=== PATIENT | female | born 1960 | race Caucasian/White ===

== ENCOUNTER 2018-03-14 14:35 | Emergency (ER) | payer MEDICARE, MEDICAID, SELFPAY ==
[2018-03-14 14:35] VITALS: BP 144/83; PULSE 77; RESP 18; TEMP 36.6; O2SAT 99; BMI 19.1
--- NOTE | 2018-03-14 14:49 | CT_ITS ---
STUDY: CT ABDOMEN AND PELVIS WITH CONTRAST REASON FOR EXAM: Female, 57 years old. Lower abdominal pain RADIATION DOSAGE (If Supplied By Facility): CTDIvol = ( 14.38 ) mGy, DLP = ( 441.70 ) mGycm TECHNIQUE: Transaxial images were obtained from the dome of the diaphragm to the symphysis pubis without oral contrast. Intravenous contrast was administered. Sagittal and coronal images were reconstructed. Individualized dose optimization techniques were used for this CT. COMPARISON: None. FINDINGS: The visualized lung bases are clear. The visualized portions of the heart and pericardium are within normal limits. There are no calcified gallstones present. The liver is within normal limits. There are no suspicious hepatic lesions. The spleen is normal in size. The pancreas is within normal limits. There is an indeterminate left adrenal nodule. The right adrenal gland is within normal limits. There are no renal or ureteral stones. There is no hydronephrosis. There are simple cysts in the right kidney. There are no left renal lesions. Normal visualized stomach. There is no bowel obstruction. There are mild inflammatory changes adjacent to a diverticulum in the sigmoid colon (for example image 91 series 2). This is consistent with mild acute sigmoid diverticulitis. The appendix is not visualized, but there are no findings to suggest acute appendicitis. The aorta is normal in caliber. There is no abdominal or pelvic free air, free fluid, fluid collection or lymphadenopathy. There are no destructive osseous lesions. CT/Abdomen/Pelvis W IV Cont ONLY IMPRESSION: Mild acute sigmoid diverticulitis. No evidence of perforation or abscess formation. Indeterminate left adrenal nodule. Electronically Signed: Chas Celestin, at 16:04 EDT Tel , Service support ,
--- NOTE | 2018-03-14 14:51 | ED.DCSUM_ITS ---
- ER Visit Summary Date of Service: 03/14/18 Chief Complaint: Abdominal pain History of Present Illness: The patient is a 57 F presents to the emergency department with abdominal pain. Patient's been having symptoms for the past 3 days. She describes tightness in her upper abdomen. She has been nauseated without vomiting. She has been taking Zofran with little relief. The patient states that she will get flares of pain like this from time to time. She states she went to urgent care and they sent her over here for further evaluation. She has had prior hysterectomy, but no other abdominal surgery. She is having loose watery diarrhea. She denies any fevers or chills. She denies any recent travel. Physical Examination: Vital signs reviewed General: Well-nourished, well-developed Head: Normocephalic, atraumatic Eyes: Pupils equal and reactive, extraocular muscles intact Neck, supple, no lymphadenopathy Heart: Regular rate and rhythm Respiratory: No distress, clear bilaterally Abdomen: Soft, mildly tender in the left lower quadrant, nondistended, no peritoneal signs Back: Nontender Extremities: Nontender, no edema, no cords Skin: Normal color no rash Neuro: Alert and oriented, no focal or lateralizing deficits Test Results: [] Emergency Department Course and Treatment: Patient declined any narcotic analgesic. IV was established. She was given fluids, Zofran, Toradol. This did improve her pain area and screening labs were obtained and were unremarkable. There was some trace blood in the urine. Patient underwent CT of the abdomen and pelvis. This does show mild uncomplicated diverticulitis. I discussed options with the patient. At this time, she wants to attempt outpatient therapy and I feel this is reasonable. Her nausea is controlled. Her abdomen is soft and nontender. She is started on Cipro and Flagyl here and will be continued on these as an outpatient. I did group home counselor her that if her symptoms worsen, she has a fever, or is unable to tolerate her medication she should return. Patient is comfortable with this plan of care. Treatment Plan: [] Disposition: Discharge Impression: 1. Diverticulitis left lower quadrant This note was generated with [employer] dictation software. It may contain incorrect words, spelling, and punctuation that were not noted in review of the chart prior to signing ED Disposition - Plan for ED Patient: Chief Complaint: Abd Pain Instructions: ED Diverticulitis Prescriptions: Ondansetron [Zofran Odt] 4 mg PO Q8H PRN PRN #10 tab PRN Reason: Nausea Metronidazole [Flagyl] 500 mg PO Q8H #21 tab Ciprofloxacin [Cipro] 500 mg PO BID #14 tab Referrals: Donavon Storey MD [Primary Care Provider] -
[2018-03-14] MEDS: Ondansetron 4 MG/2 ML Vial IV (14:59)
[2018-03-14] MEDS: 0.9% Normal Saline 1,000 ML 1000 ML IV (14:59)
[2018-03-14] MEDS: Ketorolac 30 MG/ML Syringe IV (14:59)
[2018-03-14 15:13] LABS: Absolute Lymphocyte Count 1.76 X10^3/ul (0.83-4.51); Absolute Neutrophil Count 5.3 X10^3/uL (2.0-7.7); Basophil# 0.04 X10^3/uL; Basophil% 0.5 % (0-1); Eosinophil# 0.19 X10^3/uL; Eosinophils% 2.4 % (0-5); Hematocrit 35.6 % (37-47); Hemoglobin 11.8 g/dl (12.0-15.0); Lymphocyte # 1.76 X10^3/ul (4.0); Lymphocyte % 22.3 % (19-41); Mean Corp Hgb Conc 33.1 g/gl (32-36); Mean Corpuscular Hgb 29.6 pg (27.0-32.0); Mean Corpuscular Volume 89.4 fL (81-99); Mean Platelet Vol. 10.6 fl (6.2-12.0); Monocyte# 0.54 X10^3/uL; Monocyte% 6.9 % (0-10); Neutrophil # 5.33 X10^3/uL (2.7-7.7); Neutrophil % 67.6 % (47-70); POSITIVE COUNT NO; POSITIVE DIFFERENTIAL NO; POSITIVE MORPHOLOGY NO; Platelet Count 277 K/mm3 (150-450); RBC Distribution Width SD 45.3 fl (35.1-43.9); Red Blood Count 3.98 M/mm3 (4.2-5.4); White Blood Count 7.9 K/mm3 (4.4-11.0)
[2018-03-14 15:27] LABS: ALB/GLOB Ratio 0.9 RATIO (0.9-2.4); AST(SGOT) 12 U/L (15-37); Alanine Aminotransfer ALT/SGPT 13 U/L (13-56); Albumin, Serum 3.7 g/dL (3.2-5.0); Alkaline Phosphatase 101 U/L (45-117); Anion Gap 7 (5-15); BUN 11 mg/dL (7-18); BUN/Creat Ratio 19.1 RATIO (10-20); Calcium,Total 9.2 mg/dL (8.5-10.1); Chloride 106 mmol/L (98-107); Creatinine, Serum 0.58 mg/dL (0.55-1.02); EST Glomerular Filtration Rate 114 mL/min (>60); Est Glom Filt Rate - Afr Amer 138 mL/min (>60); Estimated Creatinine Clearance 91.17 ml/min; Globulin 4.1 g/dL (2.2-4.2); Glucose 92 mg/dL (74-106); Lipase 102 U/L (73-393); Potassium 3.6 mmol/L (3.5-5.1); Protein, Total 7.8 g/dL (6.4-8.2); Sodium Level 142 mmol/L (136-145)
[2018-03-14 15:33] LABS: Bacteria 0 SEEN /hpf (None Seen); Mucous, Urine 0 SEEN /hpf (<or=2+)
[2018-03-14 15:41] LABS: Color, Urine Yellow (Yellow); Glucose, Dipstick Normal (Normal); Ketone-Dipstick Negative (Negative); Leukocyte Esterase-Dipstick Negative /ul (Negative); Nitrite-Dipstick Negative (Negative); Occult Blood-Urine 50 /ul (Negative); Protein-Dipstick Negative (Negative); Urine Bilirubin Dipstick Negative (Negative); Urine Clarity Clear (Clear); Urine Urobilinogen Normal (Normal)
[2018-03-14 15:48] LABS: Red Blood Cells-Urine 5-10 SEEN /hpf (0-5); Squamous Epithelial Cells - UA 0-5 SEEN /hpf (5-10); White Blood Cells 0-5 SEEN /hpf (0-5)
[2018-03-14] MEDS: Ciprofloxacin 500 MG Tablet PO (16:32)
[2018-03-14] MEDS: metroNIDAZOLE 500 MG Tablet PO (16:32)
[2018-03-14 16:40] VITALS: BP 142/85; PULSE 73; RESP 15; O2SAT 100
== END 2018-03-14 16:41 | disposition home or self-care (01) ==
PROVIDERS: Emergency Provider Emergency Medicine; Family Provider Family Medicine; PCP Family Medicine
DX: K57.92 Diverticulitis of intestine, part unspecified, without perforation or abscess without bleeding (principal); R31.9 Hematuria, unspecified; K21.9 Gastro-esophageal reflux disease without esophagitis; Z79.899 Other long term (current) drug therapy; Z90.710 Acquired absence of both cervix and uterus
CPT/HCPCS: 74177; 80053; 81001; 83690; 85025; 96361; 96374; 96375; 99283; J7030; Q9967; J2405

== ENCOUNTER 2020-05-24 16:46 | Emergency (ER) | payer MEDICARE, MEDICAID, SELFPAY ==
[2020-05-24 16:47] VITALS: BP 131/105; PULSE 114; RESP 15; TEMP 37; O2SAT 98; BMI 17.2
--- NOTE | 2020-05-24 16:51 | EKG12_ITS ---
Test Reason : SOB Blood Pressure : / mmHG Vent. Rate : 118 BPM Atrial Rate : 119 BPM P-R Int : 126 ms QRS Dur : 090 ms QT Int : 318 ms P-R-T Axes : 080 070 068 degrees QTc Int : 445 ms Sinus tachycardia Biatrial enlargement Abnormal ECG Confirmed by ANAND SUAZO, KANE ([id number]), food expeditor ROSALIA MYERS ([id number]) on 05/30/2020 1:22:36 PM Referred By: LADI Confirmed By:KANE MICHEL MD
--- NOTE | 2020-05-24 16:54 | NURSING ---
NO OLD EKGS
--- NOTE | 2020-05-24 17:25 | RAD_ITS ---
STUDY: X-RAY CHEST REASON FOR EXAM: Female, 60 years old. CHEST PAIN TECHNIQUE: Single AP portable view of the chest. COMPARISON: None. FINDINGS: There is hyperinflation of the lungs consistent with chronic obstructive lung disease (COPD). No consolidation or pleural effusion. Some minor scattered interstitial opacities are present. There is no demonstrated pleural abnormality. A tiny calcified nodule is present in the left lower lobe. Normal size heart. Normal mediastinum and nik. Normal visualized pulmonary arteries. There is atherosclerotic calcification of the aortic arch with tortuosity. Unremarkable visualized osseous structures. RAD/Chest 1 View (Portable) IMPRESSION: COPD Electronically Signed: Harjeet Flores MD at 17:42 EDT , Service support ,
[2020-05-24 17:33] LABS: Absolute Lymphocyte Count 1.31 X10^3/uL (0.83-4.51); Absolute Neutrophil Count 1.9 X10^3/uL (2.0-7.7); Basophil# 0.01 X10^3/uL; Basophil% 0.3 % (0-1); Eosinophil# 0.03 X10^3/uL; Eosinophils% 0.8 % (0-5); Hematocrit 50.3 % (37-47); Hemoglobin 17.5 g/dL (12.0-15.0); Lymphocyte # 1.31 X10^3/ul (4.0); Lymphocyte % 35.7 % (19-41); Mean Corp Hgb Conc 34.8 g/dL (32-36); Mean Corpuscular Hgb 31.4 pg (27.0-32.0); Mean Corpuscular Volume 90.1 fL (81-99); Mean Platelet Vol. 10.3 fl (6.2-12.0); Monocyte# 0.43 X10^3/uL; Monocyte% 11.7 % (0-10); NRBC Flagged by Analyzer 0 % (0-5); Neutrophil # 1.88 X10^3/uL (2.7-7.7); Neutrophil % 51.2 % (47-70); Platelet Count 189 K/mm3 (150-450); RBC Distribution Width CV 12.5 % (11.6-14.6); RBC Distribution Width SD 40.5 fl (35.1-43.9); Red Blood Count 5.58 M/mm3 (4.2-5.4); White Blood Count 3.7 K/mm3 (4.4-11.0)
[2020-05-24] MEDS: 0.9% Normal Saline 1,000 ML 150 ML IV (17:58)
[2020-05-24 18:00] LABS: Anion Gap 1 (5-15); BUN 14 mg/dL (7-18); BUN/Creat Ratio 15.2 RATIO (10-20); Calcium,Total 9.7 mg/dL (8.5-10.1); Chloride 107 mmol/L (98-107); Creatinine, Serum 0.92 mg/dL (0.55-1.02); EST Glomerular Filtration Rate 66 mL/min (>60); Est Glom Filt Rate - Afr Amer 79 mL/min (>60); Estimated Creatinine Clearance 49.95 ml/min; Glucose 77 mg/dL (74-106); Potassium 4.6 mmol/L (3.5-5.1); Sodium Level 138 mmol/L (136-145)
[2020-05-24 18:26] LABS: D-Dimer Quantitative (DVT/PE) 0.93 FEU/ug/m (0.27-0.49)
[2020-05-24 18:37] LABS: AST(SGOT) 15 U/L (15-37); Alanine Aminotransfer ALT/SGPT 20 U/L (13-56); Albumin, Serum 4.9 g/dL (3.2-5.0); Alkaline Phosphatase 92 U/L (45-117); Bilirubin, Direct 0.32 mg/dL (0.00-0.30); Globulin 3.9 g/dL (2.2-4.2); Protein, Total 8.8 g/dL (6.4-8.2); Thyroid Stim Hormone (TSH) 1.63 uIU/mL (0.358-3.74)
--- NOTE | 2020-05-24 18:39 | CT_ITS ---
STUDY: CTA NECK WITH CONTRAST REASON FOR EXAM: Female, 60 years old. SOB, dizziness, neck pain since Friday, fatigue, heart racing. Neck vessels ''''bulging out'' per patient RADIATION DOSAGE (If Supplied By Facility): CTDIvol = ( 12.90 ) mGy, DLP = ( 951.13 ) mGycm TECHNIQUE: CT angiography with multi-detector data acquisition was performed from the aortic arch to the skull base following intravenous administration of IV 75mL Isovue-370. MIP images were reconstructed from the axial data set. Post-processing of the angiographic images was performed, with multiplanar reformation and 3D reconstruction. Individualized dose optimization techniques were used for this CT. COMPARISON: CTA of the neck dated May 24, 2020. FINDINGS: AORTIC ARCH: There is atherosclerotic calcific plaque formation of the aortic arch and great vessels arising from the aortic arch, without a hemodynamically significant stenosis. There is a normal origin of the brachiocephalic, left common carotid, and left subclavian arteries. Normal origins of the brachiocephalic, left common carotid, and left subclavian arteries. RIGHT CAROTID ARTERIES: Normal right common carotid artery (CCA). Normal right common carotid bulb. Normal origin of the right internal carotid (ICA) artery without a hemodynamically significant stenosis. Small eccentric focus of atherosclerotic calcification present in the posterior aspect of the proximal ICA without luminal stenosis. Normal visualized cervical portion of the right internal carotid artery. Normal origin of the right external carotid artery (ECA). LEFT CAROTID ARTERIES: Normal left common carotid artery (CCA). Minor eccentric calcified atherosclerotic plaque is present without luminal stenosis. Minor eccentric calcified atherosclerotic plaque is present without luminal stenosis. Normal visualized cervical portion of the left internal carotid artery. Normal origin of the left external carotid artery (ECA). VERTEBRAL ARTERIES: Normal bilateral vertebral arteries. Degenerative changes are present in the cervical spine. Cystic emphysematous changes are present in the upper lobes. CT/CTA Neck W/WO Contrast IMPRESSION: 1. No hemodynamically significant stenosis of the carotid arteries. 2. Minor eccentric calcified atherosclerotic plaque is present in the left carotid bulb and proximal ICA without luminal stenosis. Electronically Signed: Harjeet Flores MD at 19:51 EDT , Service support ,
--- NOTE | 2020-05-24 18:40 | CT_ITS ---
STUDY: CTA CHEST REASON FOR EXAM: Female, 60 years old. SOB, dizziness, neck pain since Friday, fatigue, heart racing. Neck vessels ''''bulging out'' per patient RADIATION DOSAGE (If Supplied By Facility): CTDIvol = ( 12.90 ) mGy, DLP = ( 951.13 ) mGycm TECHNIQUE: The examination was performed with the intravenous administration of IV 75mL Isovue-370. Post-processing of the angiographic images was performed, with multiplanar reformation and 3D reconstruction. Individualized dose optimization techniques were used for this CT. COMPARISON: Chest x-ray dated May 24, 2020. CT of abdomen and pelvis dated March 14, 2018. FINDINGS: Normal enhancement of the main pulmonary artery and right and left pulmonary arteries. Normal enhancement of the bilateral peripheral pulmonary arteries. There is no demonstrated pulmonary embolism. There is atherosclerotic calcification of the aortic arch with tortuosity. There is no demonstrated aortic dissection. Normal heart size and pericardium. Normal mediastinum. Normal hilar regions. Normal visualized trachea and bronchi. Lungs are hyperinflated compatible with COPD. Diffuse cystic emphysematous changes are present. No consolidation or pulmonary edema or pleural effusion. A 3.8 mm semisolid nodule is present in the central aspect of the right upper lobe see image #196/265 series 2. No additional nodules are present. Normal chest wall structures. There are degenerative changes of thoracic spine. No demonstrated acute or significant process of the visualized upper abdomen. 2.56 cm hypodense nodule of the left adrenal gland has benign features of a left adrenal adenoma and has been present since the March 14, [address]/CTA Chest W/WO Contrast IMPRESSION: 1. No demonstrated pulmonary embolism or arterial dissection. 2. Lungs are hyperinflated compatible with COPD. Diffuse cystic emphysematous changes are present. 3. No consolidation or pulmonary edema or pleural effusion. 4. A 3.8 mm semisolid nodule is present in the central aspect of the right upper lobe see image #196/265 series 2. No additional nodules are present 5. Follow Fleischner''s Society guidelines for pulmonary nodules Electronically Signed: Harjeet Flores MD at 19:46 EDT , Service support ,
[2020-05-24 19:25] VITALS: BP 119/78; PULSE 100; RESP 16; O2SAT 98
--- NOTE | 2020-05-24 20:03 | ED.VIS.GEN ---
History of Present Illness Chief Complaint: Shortness of Breath Informant: Patient Onset: Days - 3 days Context: Gradual Onset Current Severity: Mild Maximum Severity: Moderate Narrative: Patient presents with 3-day history of intermittent shortness of breath, dizziness, chest pain and palpitations. She states she has a sensation of having a low-grade fever. She states occasionally she will feel like her heart is racing. Symptoms seem to be improving when she sits to rest and worse with exertion. She states the veins in her neck are hard. - Past Medical History (1) Borderline diabetes Status: Chronic (2) Hepatitis C Status: Chronic (3) Hemochromatosis Status: Chronic Past Medical History - Allergies and Home Meds Allergies/Adverse Reactions: Allergies codeine Allergy (Verified 05/24/20 16:46) Hives fentanyl Adverse Reaction (Verified 05/24/20 16:46) Nausea Primary Care Physician: Giovanna Hernandez PA [Primary Care Provider] - 1 Week if not improving Surgical History: hysterectomy Lives: Alone Smoking Status: Current every day smoker Review of Systems General: Denies: Chills, Fever Eyes: Denies: Visual changes - bilaterally ENT: Denies: Bilateral ear pain Cardiovascular: Reports: Chest pain, Palpitations, Heart racing Respiratory: Reports: Dyspnea. Denies: Cough Gastrointestinal: Denies: Abdominal pain, Vomiting, Diarrhea Musculoskeletal: Denies: Swelling, Extremity Pain Neurological: Denies: Headache Hematologic: Denies: Easy bruising, Easy bleeding Allergy: Denies: Uticaria Physical Exam Vital Signs/Narrative: Vital Signs Temp Pulse Resp BP Pulse Ox 05/24/20 19:25 100 16 119/78 98 05/24/20 16:47 98.6 F 114 H 15 131/105 H 98 Inital Vital Signs reviewed: Yes General: Well nourished, Well developed Head: Normocephalic ENT: Moist mucous membranes, - - No significant JVD noted. Neck: Supple Cardiovascular: Regular rate, Regular rhythm Respiratory: No distress, CTA bilaterally Abdomen: Soft, Nontender, Normal bowel sounds Extremities: Nontender, No edema Skin: Normal color Neurological: Alert, Oriented x3 Psychological: Normal affect Diagnostic/Tx/Re-eval Impressions Chest X-Ray 05/24/20 17:25 IMPRESSION: COPD Electronically Signed: Harjeet Flores MD at 17:42 EDT , Service support , Neck CTA 05/24/20 18:39 IMPRESSION: 1. No hemodynamically significant stenosis of the carotid arteries. 2. Minor eccentric calcified atherosclerotic plaque is present in the left carotid bulb and proximal ICA without luminal stenosis. Electronically Signed: Harjeet Flores MD at 19:51 EDT , Service support , Chest CTA 05/24/20 18:40 IMPRESSION: 1. No demonstrated pulmonary embolism or arterial dissection. 2. Lungs are hyperinflated compatible with COPD. Diffuse cystic emphysematous changes are present. 3. No consolidation or pulmonary edema or pleural effusion. 4. A 3.8 mm semisolid nodule is present in the central aspect of the right upper lobe see image #196/265 series 2. No additional nodules are present 5. Follow Fleischner''s Society guidelines for pulmonary nodules Electronically Signed: Harjeet Flores MD at 19:46 EDT , Service support , 05/24/20 17:25 Chest 1 View (Portable) [RAD] Stat 05/24/20 18:39 CTA Neck W/WO Contrast [CT] Stat 05/24/20 18:40 CTA Chest W/WO Contrast [CT] Stat Laboratory Results 05/24/20 05/24/20 05/24/20 17:05 17:20 17:20 WBC 3.7 L RBC 5.58 H Hgb 17.5 H Hct 50.3 H MCV 90.1 MCH 31.4 MCHC 34.8 RDW Std Deviation 40.5 RDW Coeff of Jamee 12.5 Plt Count 189 MPV 10.3 Immature Gran % (Auto) 0.300 Neut % (Auto) 51.2 Lymph % (Auto) 35.7 Mchenry % (Auto) 11.7 H Eos % (Auto) 0.8 Baso % (Auto) 0.3 Absolute Neuts (auto) 1.9 L Absolute Lymphs (auto) 1.31 Nucleated RBC % 0 D-Dimer Quant (PE/DVT) 0.93 H* Sodium 138 Potassium 4.6 Chloride 107 Carbon Dioxide 30.0 Anion Gap 1 L BUN 14 Creatinine 0.92 Estim Creat Clear Calc 49.95 Est GFR (MDRD) Af Amer 79 Est GFR (MDRD) Non-Af 66 BUN/Creatinine Ratio 15.2 Glucose 77 Calcium 9.7 Total Bilirubin Direct Bilirubin AST ALT Alkaline Phosphatase Troponin I < 0.015 Total Protein Albumin Globulin TSH 05/24/20 17:20 WBC RBC Hgb Hct MCV MCH MCHC RDW Std Deviation RDW Coeff of Jamee Plt Count MPV Immature Gran % (Auto) Neut % (Auto) Lymph % (Auto) Mchenry % (Auto) Eos % (Auto) Baso % (Auto) Absolute Neuts (auto) Absolute Lymphs (auto) Nucleated RBC % D-Dimer Quant (PE/DVT) Sodium Potassium Chloride Carbon Dioxide Anion Gap BUN Creatinine Estim Creat Clear Calc Est GFR (MDRD) Af Amer Est GFR (MDRD) Non-Af BUN/Creatinine Ratio Glucose Calcium Total Bilirubin 3.60 H Direct Bilirubin 0.32 H AST 15 ALT 20 Alkaline Phosphatase 92 Troponin I Total Protein 8.8 H Albumin 4.9 Globulin 3.9 TSH 1.63 - EKG Initial EKG Interpretation: Sinus Tachycardia - Sinus tach at 118. No acute ischemia. - Medical Decision Making Patient was given IV fluids here. On repeat evaluation heart rate is 99. Test results are discussed with the patient. She does have a small right upper lung nodule that will need follow-up. No other acute abnormalities noted. She does state that she feels very anxious and has had difficulty sleeping the last several nights. She will be given low-dose Vistaril to see if this helps with her sleep. She will follow-up with her PCP. ED Disposition - Plan for ED Patient: Disposition: Home or Assisted Living Diagnosis: Atypical chest pain, Anxiety Instructions: ED Stress React, ED Chest Pain Atypical Unkn Cause Prescriptions: hydrOXYzine pamoate capsule [Vistaril] 25 mg PO TID PRN PRN #14 cap PRN Reason: Anxiety Transmission Status: Received by [facility] [facility] Referrals: Giovanna Hernandez, PA [Primary Care Provider] - 1 Week if not improving Additional Instructions: As discussed, your test results do not indicate any sign of cardiac damage. Your CT scan of your chest and neck are unremarkable other than a small nodule in the right upper lung that will need follow-up. A couple of your liver tests were mildly abnormal and will need follow-up.
[2020-05-24 20:16] VITALS: BP 144/84; PULSE 99; RESP 18; O2SAT 98
== END 2020-05-24 20:18 | disposition home or self-care (01) ==
PROVIDERS: Emergency Provider Emergency Medicine; PCP Physician Assistant
DX: R07.89 Other chest pain (principal); F41.9 Anxiety disorder, unspecified; R91.1 Solitary pulmonary nodule; F17.200 Nicotine dependence, unspecified, uncomplicated
CPT/HCPCS: 70498; 71045; 71275; 80048; 80076; 84443; 84484; 85025; 85379; 93005; 96360; 96361; 99283; J7030; Q9967; A4216

== ENCOUNTER 2021-03-11 15:10 | Inpatient (IN) | payer MEDICARE, MEDICAID, SELFPAY ==
[2021-03-11 15:11] VITALS: BP 165/111; PULSE 106; RESP 18; TEMP 37.1; O2SAT 96; BMI 18.1
--- NOTE | 2021-03-11 15:58 | CT_ITS ---
INDICATION: abd pain EXAMINATION: CT Abdomen And Pelvis W/ Contrast Injection TECHNIQUE: Helically acquired images were obtained of the abdomen and pelvis after IV contrast. A radiation dose optimization technique was used for this scan. IV Contrast dosage and agent: IV 100mL Isovue-370 Oral contrast: None. COMPARISON: None. FINDINGS: Visualized lung bases: Unremarkable Liver: Unremarkable Gallbladder: Unremarkable Spleen: Unremarkable Pancreas: Unremarkable Adrenal Glands: 1.8 cm left adrenal nodule measuring 55 [place] units. Kidneys: 2.1 cm intermediate density cyst in the right upper pole. Bilateral pelviectasis. Vasculature: Moderate aortoiliac atherosclerotic disease. GI Tract: Scattered colonic diverticula. There is a short segment of sigmoid colon demonstrating circumferential wall thickening and surrounding mesenteric fat stranding. There is also a partially loculated rim-enhancing fluid collection adjacent to the sigmoid colon in the left hemipelvis measuring approximately 1.9 x 1.6 x 2.4 cm. No free air. Lymphadenopathy: None Peritoneum: No ascites. Bladder: Unremarkable Reproductive organs: Status post hysterectomy. Bones/Soft tissues: No suspicious osseous or soft tissue lesions CT/Abdomen/Pelvis W IV Cont ONLY IMPRESSION: Acute sigmoid diverticulitis with adjacent 2.4 cm developing pelvic abscess. Cannot rule out underlying malignancy, therefore recommend colonoscopy once acute infection is resolved. 1.8 cm intermediate density left adrenal nodule and 2.1 cm intermediate density right upper pole renal cyst are both indeterminate. Recommend follow-up multiphase CT or MR abdomen for further evaluation. Electronically Signed: Kenneth Baker MD at 18:02 EDT Tel , Service support ,
--- NOTE | 2021-03-11 16:02 | EDS_ITS ---
HPI HPI - GI History of Present Illness Chief Complaint: Abd Pain Informant: patient Abdominal Pain/Flank Pain Onset: Weeks Context: Gradual Onset Timing: Intermittent Quality: Aching Current Severity: Mild Maximum Severity: Mild Nausea/Vomiting/Emesis GI Symptom: Positive for Nausea; Negative for Vomiting Diarrhea/Melena/Hematochezia GI Symptom: Negative for Diarrhea, Melena and Hematochezia Associated Symptoms Associated Symptoms: Negative for Dysuria, Frequency, Hematuria and Urgency Narrative Narrative: 60-year-old female history of prior hysterectomy. Has a history of hemochromatosis, COPD, fibromyalgia and possibly borderline diabetes. States she had abdominal pain for a week no weight loss. Nausea without vomiting. Intermittent constipation. Subjective fever she denies any dysuria. Prior similar symptoms: Yes Recent Illness/Hospitalization: No PFSH PFSH Home Medications NK 03/11/21 [History Last Taken Unknown] Allergy/AdvReac Type Severity Reaction Status Date / Time codeine Allergy Hives Verified 03/11/21 15:11 fentanyl AdvReac Nausea Verified 03/11/21 15:11 Social History Smoking Status: Current every day smoker tobacco type: cigarettes ROS ROS ED ROS Narrative Abdominal pain with nausea and intermittent constipation. No dysuria. Review of Systems ROS Unobtainable: Denies due to encephalopathy Constitutional Constitutional ED: Reports fever(s) and subjective ENT ENT ED: Denies ear pain or sore throat Cardiovascular Cardiovascular: Denies chest pain or palpitations Respiratory/Chest Respiratory/Chest: Denies cough or dyspnea Gastrointestinal Gastrointestinal: Reports abdominal pain, constipation and nausea; Denies diarrhea, melena or vomiting Genitourinary Genitourinary ED: Denies dysuria or hematuria Musculoskeletal Musculoskeletal: Denies myalgias Integumentary Denies rash Neurologic Neurologic: Denies headache(s) Psychiatric Psychiatric: Denies depression Endocrine Endocrinology: Denies polyuria Hematologic/Lymphatic Hematologic/Lymphatic: Denies easy bruising Allergic/Immunologic Allergic/Immunologic ED: Denies urticaria EXAM Physical Exam Narrative Exam Narrative: Older female no acute distress. Vital signs stable afebrile. Does not look septic or toxic. H EENT exam unremarkable. Lungs are clear. Heart regular rhythm no murmur. Abdomen soft. Nondistended. Normal bowel sounds no peritoneal signs. Very benign appearing abdomen. Right upper right lower quadrant unremarkable. No pulsatile mass. No hernia. No distention. No signs of obstruction. Moving all 4 extremities. Neurologically awake alert with no focal motor deficits. Back nontender. Const Vital Signs: 03/11/21 15:11 03/11/21 17:11 Temperature 98.8 F Temperature Source Temporal Pulse Rate 106 H 94 Respiratory Rate 18 16 Blood Pressure 165/111 H 141/72 H Blood Pressure Mean 129 95 Pulse Ox 96 100 Oxygen Delivery Method Room Air Room Air Positive well nourished and well developed General Appearance ED: well developed HEENT Reports moist mucous membranes normocephalic and atraumatic; Negative for trauma or tenderness Eyes PERRL and EOMs intact bilaterally Neck no lymphadenopathy, supple and no JVD General: Negative for tenderness Resp normal respiratory effort and clear to auscultation bilaterally Cardio regular rate, regular rhythm, S1 normal heart sound, S2 normal heart sound and no murmurs GI non-tender, non-distended and no masses Inspection: Negative for abdominal distention Auscultation: normoactive bowel sounds; Negative for hyperactive bowel sounds or hypoactive bowel sounds Palpation: soft; Negative for tender, guarding, rigid or rebound tenderness present Back/Spine no CVA tenderness General Back: Negative for CVA tenderness Extremity full ROM General Extremety ED: Negative for edema or tenderness General Extremity: Negative for edema Neuro Sensorium / Orientation: alert, oriented to person, oriented to place, oriented to time and orientation impaired Motor Exam: strength 5/5 throughout Psych mental status grossly normal Skin Lesions: no lesions Rashes: no rashes MDM MDM MDM Narrative Medical decision making narrative: 60-year-old female prior hysterectomy. Complaining of 1 week history of intermittent abdominal pain. Has a benign exam. CAT scan and labs are being obtained. Impression: Acute abdominal pain Acute sigmoid diverticulitis with abscess Leukocytosis Lab Data Attestation: I reviewed the patient's lab results. Lab results narrative: CBC shows a mildly elevated white count of 13. Hemoglobin of 12. Electrolytes unremarkable. Normal creatinine and gap. Normal liver enzymes. Normal lipase. UA shows no obvious signs of infection. There was blood and ketones. CAT scan shows sigmoid diverticulitis with suspected early abscess formation. Repeat exam patient is doing well in the emergency department at 8:30 PM. She will be started on IV Zosyn I will speak to the hospitalist about admission. Labs: Laboratory Results - last 24 hr 03/11/21 03/11/21 03/11/21 15:10 15:10 16:38 WBC 13.1 H RBC 4.28 Hgb 12.1 Hct 38.8 MCV 90.7 MCH 28.3 MCHC 31.2 L RDW Std Deviation 45.6 H RDW Coeff of Jamee 13.7 Plt Count 362 MPV 10.3 Immature Gran % (Auto) 0.500 Neut % (Auto) 72.2 H Lymph % (Auto) 18.1 L [place] % (Auto) 8.1 Eos % (Auto) 0.7 Baso % (Auto) 0.4 Absolute Neuts (auto) 9.4 H Absolute Lymphs (auto) 2.36 Nucleated RBC % 0 Sodium 137 Potassium 3.6 Chloride 101 Carbon Dioxide 28.0 Anion Gap 8 BUN 11 Creatinine 0.74 Estim Creat Clear Calc 65.33 Est GFR (MDRD) Af Amer 102 Est GFR (MDRD) Non-Af 84 BUN/Creatinine Ratio 14.8 Glucose 93 Calcium 9.5 Total Bilirubin 0.90 AST 14 L ALT 9 L Alkaline Phosphatase 109 Total Protein 8.7 H Albumin 4.2 Globulin 4.5 H Albumin/Globulin Ratio 0.9 Lipase 295 Urine Color Straw Urine Clarity Sl Cldy Urine pH 6.5 Ur Specific [place] 1.010 Urine Protein 15 H Urine Glucose (UA) Normal Urine Ketones 150 A* Urine Occult Blood 250 H Urine Nitrite Negative Urine Bilirubin Negative Urine Urobilinogen Normal Ur Leukocyte Esterase 25 H Urine RBC 10-25 SEEN Urine WBC 0-5 SEEN Ur Squamous Epith Cells 0-5 SEEN Urine Bacteria 0 SEEN Urine Mucus 0 SEEN Radiography Diagnostic Testing: Radiology Impression Abdomen/Pelvis CT 03/11/21 15:58 IMPRESSION: Acute sigmoid diverticulitis with adjacent 2.4 cm developing pelvic abscess. Cannot rule out underlying malignancy, therefore recommend colonoscopy once acute infection is resolved. 1.8 cm intermediate density left adrenal nodule and 2.1 cm intermediate density right upper pole renal cyst are both indeterminate. Recommend follow-up multiphase CT or MR abdomen for further evaluation. Electronically Signed: Kenneth Baker MD at 18:02 EDT Tel , Service support , Discharge Plan Triage Chief Complaint: Abd Pain ED Provider: Leighton Kiran Dx/Rx/DC Orders Prescriptions: No Action NK RF: 0 Primary Care Provider: Elliott Porter Referrals: Elliott Porter MD [Primary Care Provider] - Disposition Disposition: Acute Care Hospital [facility]
[2021-03-11] MEDS: 0.9% Normal Saline 1,000 ML 1000 ML IV (16:14)
[2021-03-11 16:16] LABS: Absolute Lymphocyte Count 2.36 X10^3/uL (0.83-4.51); Absolute Neutrophil Count 9.4 X10^3/uL (2.0-7.7); Basophil# 0.05 X10^3/uL; Basophil% 0.4 % (0-1); Eosinophil# 0.09 X10^3/uL; Eosinophils% 0.7 % (0-5); Hematocrit 38.8 % (37-47); Hemoglobin 12.1 g/dL (12.0-15.0); Lymphocyte # 2.36 X10^3/ul (0.83-4.51); Lymphocyte % 18.1 % (19-41); Mean Corp Hgb Conc 31.2 g/dL (32-36); Mean Corpuscular Hgb 28.3 pg (27.0-32.0); Mean Corpuscular Volume 90.7 fL (81-99); Mean Platelet Vol. 10.3 fl (6.2-12.0); Monocyte# 1.06 X10^3/uL; Monocyte% 8.1 % (0-10); NRBC Flagged by Analyzer 0 % (0-5); Neutrophil # 9.43 X10^3/uL (2.7-7.7); Neutrophil % 72.2 % (47-70); Platelet Count 362 K/mm3 (150-450); RBC Distribution Width CV 13.7 % (11.6-14.6); RBC Distribution Width SD 45.6 fl (35.1-43.9); Red Blood Count 4.28 M/mm3 (4.2-5.4); White Blood Count 13.1 K/mm3 (4.4-11.0)
[2021-03-11 16:30] LABS: ALB/GLOB Ratio 0.9 RATIO (0.9-2.4); AST(SGOT) 14 U/L (15-37); Alanine Aminotransfer ALT/SGPT 9 U/L (13-56); Albumin, Serum 4.2 g/dL (3.2-5.0); Alkaline Phosphatase 109 U/L (45-117); Anion Gap 8 (5-15); BUN 11 mg/dL (7-18); BUN/Creat Ratio 14.8 RATIO (10-20); Calcium,Total 9.5 mg/dL (8.5-10.1); Chloride 101 mmol/L (98-107); Creatinine, Serum 0.74 mg/dL (0.55-1.02); EST Glomerular Filtration Rate 84 mL/min (>60); Est Glom Filt Rate - Afr Amer 102 mL/min (>60); Estimated Creatinine Clearance 65.33 ml/min; Globulin 4.5 g/dL (2.2-4.2); Glucose 93 mg/dL (74-106); Lipase 295 U/L (73-393); Potassium 3.6 mmol/L (3.5-5.1); Protein, Total 8.7 g/dL (6.4-8.2); Sodium Level 137 mmol/L (136-145)
[2021-03-11 16:44] LABS: Bacteria 0 SEEN /hpf (None Seen); Mucous, Urine 0 SEEN /hpf (<or=2+)
[2021-03-11 16:46] LABS: Color, Urine Straw (Yellow); Glucose, Dipstick Normal (Normal); Leukocyte Esterase-Dipstick 25 /ul (Negative); Nitrite-Dipstick Negative (Negative); Occult Blood-Urine 250 /ul (Negative); Protein-Dipstick 15 mg/dl (Negative); Urine Bilirubin Dipstick Negative (Negative); Urine Urobilinogen Normal (Normal); Urine pH 6.5 (5.0 - 8.0)
[2021-03-11 16:50] LABS: Ketone-Dipstick 150 mg/dl (Negative)
[2021-03-11 16:52] LABS: White Blood Cells 0-5 SEEN /hpf (0-5)
[2021-03-11 16:53] LABS: Red Blood Cells-Urine 10-25 SEEN /hpf (0-5); Squamous Epithelial Cells - UA 0-5 SEEN /hpf (5-10); Urine Clarity Sl Cldy (Clear)
[2021-03-11 17:11] VITALS: BP 141/72; PULSE 94; RESP 16; O2SAT 100
[2021-03-11] MEDS: Ondansetron 4 MG/2 ML Vial IV (20:28)
[2021-03-11 20:53] VITALS: BP 148/90; PULSE 89; RESP 16; TEMP 36; O2SAT 95
--- NOTE | 2021-03-11 21:19 | PCM.HOSP.N ---
Hospitalist Note History and physical: Chief Complaint: Abdominal pain. The patient is a 60 y/o F w/ PMHx: Chronic COPD, Fibromyalgia, Tobacco use, Borderline Diabetes mellitus type II, Hepatitis, Hemochromatosis, Untreated HTN who presents to the [facility] ED on 03/11/21 with history of 1 week of ongoing abdominal pain primarily periumbilical, both intermittently cramping and sharp stabbing in nature, nausea with no emesis, one episode of diarrhea on AM of day of presentation with subjective fevers without chills. She is currently rating her pain 7-8/10-->now 6/10 with ongoing nausea in the ED. ED physician discussed case with Dr. Macedo. In the ED patient initiated on Zosyn therapy. Allergies: Codeine with hives, fentanyl with nausea. Home medications: None. Social Hx: Notes her grandson lives with her, ongoing 1 ppd cigarette tobacco use since teen, no EtOH use, occasional medical marijuana PSurgHx: Hysterectomy Family Hx Maternal family history of heart disease in a paternal family history of diabetes as well as liver cancer. Admission Review of Systems: CONSTITUTIONAL: No weight loss, chills, + fever, weakness or fatigue. HEENT: Eyes: No visual loss, blurred vision, double vision or yellow sclerae. Ears, Nose, Throat: No hearing loss, sneezing, congestion, runny nose or sore throat. SKIN: No rash or itching, lesions, wounds. CARDIOVASCULAR: No chest pain, chest pressure or chest discomfort, palpitations, edema, orthopnea, syncopal events. RESPIRATORY: No shortness of breath, cough or sputum, wheezing, hemoptysis. GASTROINTESTINAL: + anorexia, nausea without vomiting, diarrhea, abdominal pain, No melena, BRBPR. GENITOURINARY: No dysuria, frequency, urgency or retention. NEUROLOGICAL: No headache, dizziness, syncope, paralysis, ataxia, numbness or tingling in the extremities, focal weakness, change in bowel or bladder control, seizure. MUSCULOSKELETAL: No muscle, back pain, joint pain or stiffness. HEMATOLOGIC: No anemia, bleeding or bruising. LYMPHATICS: No enlarged nodes. No history of splenectomy. PSYCHIATRIC: No history of depression or anxiety. ENDOCRINOLOGIC: No reports of sweating, cold or heat intolerance. No polyuria or polydipsia. ALLERGIES: No history of asthma, hives, eczema or rhinitis. Labs: CBC with WC 13.1, hemoglobin 12.1, platelets 362 with left shift CMP with AST/LT 14/9, alk phos 109 otherwise not marked Lipase 295 Urinalysis with specific gravity 1.010, urine protein 15, ketone 150, occult blood 250, negative nitrite, leukocyte esterase 25, urine RBCs 10-25, no urine WBCs and no urine bacteria Imaging: CT abdomen and pelvis with acute sigmoid diverticulitis with adjacent 2.4 cm developing pelvic abscess, 1.8 cm intermediate density left adrenal nodule and 2.1 cm intermediate density right upper pole renal cysts are both indeterminate with recommend follow-up CT. VS: T 98.8, heart rate 106, BP 165/111 initially with repeat 141/72, respiratory rate 18, 96% on room air Physical Examination: General: awake, alert, oriented x 3 and cooperative, laying in the ED bed, fatigued, notes abdominal discomfort ongoing but improving, 6 out of 10. Skin: normal color, normal turgor, no icterus, no cyanosis. HEENT: AT/NC, EOMI, PERRLA, dry MM, no carotid bruits or JVD noted. Lungs: CTA bilaterally, moderate effort, mild decrease BL bases, no rales, ronchi or wheezing. Heart: Regular rate and rhythm; no gallop, rub audible. Abdomen: soft, generalized discomfort to palpation, worse periumbilically and bilateral lower quadrant with some rebound, mild distention, hyperactive bowel sounds, difficult to assess HSM secondary to pain and presentation. Extremities: no cyanosis, clubbing, or edema. Neurological: patient awake, alert, oriented as noted; cognitive function intact; pupils equally reactive to light and accomodation; cranial nerves II-XII grossly normal, moving all 4 extremities, no focal deficits, strength moderately to severely globally decreased secondary to acute presentation. Psychiatric: affect appears fatigued, uncomfortable, no acute evidence of depressive or anxiety feelings. Assessment and Plan: The patient is a 60 y/o F w/ PMHx: Chronic COPD, Fibromyalgia, Tobacco use, Borderline Diabetes mellitus type II, Hepatitis, Hemochromatosis, Untreated HTN who presents to the [facility] ED on 03/11/21 with history of 1 week of ongoing abdominal pain primarily periumbilical, both intermittently cramping and sharp stabbing in nature, nausea with no emesis, one episode of diarrhea on AM of day of presentation with subjective fevers without chills. 1. Acute Sigmoid Diverticulitis with pelvic abscess: Will admit to MS, maintain on aggressive hydration, monitor I&Os, maintain NPO status w/ bowel rest, treat with zosyn regimen, famotidine, anti-emetics, pain regimen PRN. General surgery consulted, pending. Additional Co-morbidities: Hemochromatosis: Patient currently on regimen of every other month phlebotomy, had been significant every 2 week regimen initially but has improved. Hypertension, untreated: Patient notes history of elevated blood pressure but not on regimen, will monitor and add oral regimen once appropriate, in the interim IV as needed hydralazine Hepatitis C: Patient notes treatment years ago which was successful. Chronic COPD: Encouraged tobacco cessation, as needed albuterol, encourage head bed and I-S. Tobacco Abuse: Encouraged cessation, inpatient consultation per RT, NR if desired. Tobacco Abuse: Encouraged cessation, inpatient consultation per RT, NR if desired. Borderline Diabetes mellitus type II: We will obtain hemoglobin A1c and pending level, n.p.o. status given current presentation, every 6 hour accu checks w/ ISS. DVT prophylaxis: SCDs, defer chemoprophylaxis in case of operative intervention or IR needs. Visit Charges Inpatient E&M: 18323 Init Hosp L3
[2021-03-11 22:05] VITALS: BMI 18.8
--- NOTE | 2021-03-11 22:12 | NURSING ---
Pt states she only got one dose of the vaccine because she was sick for 2 weeks after it.
[2021-03-11 22:22] VITALS: BP 146/73; PULSE 80; RESP 16; TEMP 36.9; O2SAT 99
[2021-03-11 22:29] VITALS: RESP 18; O2SAT 98
[2021-03-11 22:30] VITALS: PULSE 80
[2021-03-11] MEDS: 0.9% Normal Saline 1,000 ML 125 ML IV (22:52)
[2021-03-11] MEDS: Famotidine 200 MG/20 ML MDV 20 MG in 0.9% Normal Saline (Pres. free 8 ML 300 MG IV (22:53)
[2021-03-11] MEDS: Morphine 2 MG/ML Syringe IV (22:53)
[2021-03-11 23:36] LABS: Bedside Glucose 110 mg/dL (70-110)
[2021-03-12] MEDS: Temazepam 15 MG Capsule PO ×2 (00:18→21:31)
--- NOTE | 2021-03-12 02:50 | NURSING ---
Pt was up to the bathroom and when she returned to bed she no longer wanted to have her SCDS on. She felt they were keeping her awake and were bothering her stomach.
[2021-03-12 04:06] VITALS: BP 118/70; PULSE 77; RESP 16; TEMP 36.4; O2SAT 98
--- NOTE | 2021-03-12 04:20 | NURSING ---
Pt states she is feeling better. Denies having any diarrhea since admission. She has been resting well.
[2021-03-12 06:06] LABS: Bedside Glucose 86 mg/dL (70-110)
[2021-03-12 06:31] LABS: Absolute Lymphocyte Count 1.99 X10^3/uL (0.83-4.51); Absolute Neutrophil Count 6.5 X10^3/uL (2.0-7.7); Basophil# 0.04 X10^3/uL; Basophil% 0.4 % (0-1); Eosinophil# 0.13 X10^3/uL; Eosinophils% 1.4 % (0-5); Hematocrit 31.9 % (37-47); Lymphocyte # 1.99 X10^3/ul (0.83-4.51); Lymphocyte % 20.9 % (19-41); Mean Corp Hgb Conc 31.3 g/dL (32-36); Mean Corpuscular Hgb 28.4 pg (27.0-32.0); Mean Corpuscular Volume 90.6 fL (81-99); Mean Platelet Vol. 10.4 fl (6.2-12.0); Monocyte# 0.77 X10^3/uL; Monocyte% 8.1 % (0-10); NRBC Flagged by Analyzer 0 % (0-5); Neutrophil # 6.54 X10^3/uL (2.7-7.7); Neutrophil % 68.8 % (47-70); Platelet Count 275 K/mm3 (150-450); RBC Distribution Width CV 13.5 % (11.6-14.6); RBC Distribution Width SD 44.8 fl (35.1-43.9); Red Blood Count 3.52 M/mm3 (4.2-5.4); White Blood Count 9.5 K/mm3 (4.4-11.0)
[2021-03-12 07:01] LABS: ALB/GLOB Ratio 0.8 RATIO (0.9-2.4); AST(SGOT) 12 U/L (15-37); Alanine Aminotransfer ALT/SGPT 8 U/L (13-56); Albumin, Serum 3.1 g/dL (3.2-5.0); Alkaline Phosphatase 85 U/L (45-117); Anion Gap 6 (5-15); BUN 8 mg/dL (7-18); BUN/Creat Ratio 21.8 RATIO (10-20); Calcium,Total 8.5 mg/dL (8.5-10.1); Chloride 108 mmol/L (98-107); Creatinine, Serum 0.37 mg/dL (0.55-1.02); EST Glomerular Filtration Rate 189 mL/min (>60); Est Glom Filt Rate - Afr Amer 229 mL/min (>60); Estimated Creatinine Clearance 140.61 ml/min; Globulin 3.8 g/dL (2.2-4.2); Glucose 77 mg/dL (74-106); Potassium 3.8 mmol/L (3.5-5.1); Protein, Total 6.9 g/dL (6.4-8.2); Sodium Level 139 mmol/L (136-145)
[2021-03-12 07:13] VITALS: O2SAT 94
[2021-03-12] MEDS: Morphine 2 MG/ML Syringe IV ×3 (08:40→21:58)
[2021-03-12] MEDS: 0.9% Saline Lock 10 ML Syringe IV ×5 (08:41→21:59)
[2021-03-12 08:59] LABS: Hemoglobin A1c 5.6 % (3.8-5.6)
[2021-03-12 09:41] VITALS: BP 124/74; PULSE 74; RESP 18; TEMP 36.8; O2SAT 98
--- NOTE | 2021-03-12 09:49 | CON.PCM_ITS ---
Consult Date of Consult: 03/12/21 CC: abdominal pain HISTORY OF PRESENT ILLNESS: 60 y/o WF presents with lower abdominal pain for the past several days. She has had nausea but no emesis. She also notes low grade fevers. She presented to [facility] ED. Workup revealed elevated WBC of 13.1K with left shift of differential. CT scan revealed sigmoid diverticulitis with abscess about 2 cm. Patient states that she has not had an episode of diverticulitis in the past. She does note some GI complains of increased constipation, small unsatisfying bowel movements, increased need to strain, and harder stools. She does states that she takes in enough water and fiber. She last had a colonoscopy in 2014 - no abnormalities noted She denies colon cancer in the family. She does admit to TOB use. She was recently evaluated by a cleaners for complaint of upper abdominal pain - February 2021, scheduled for future EGD/colonoscopy PAST MEDICAL HISTORY: Arthritis hip, fingers, wrist, ankles Bipolar affective disorder (HCC) 08/28/2010 COPD (chronic obstructive pulmonary disease) (HCC) ? Fibromyalgia ? Gastritis ? Hemochromatosis ? 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 Hyperglycemia ? Lumbar disc herniation ? Microcalcifications of the breast ? Renal cyst ? Tobacco use disorder ? Upper abdominal pain Chronic. 06/20/15 aortic US was WNL. CT chest 03/08/[address] abdomen and pelvis 11/08/08 WNL except renal cysts followed by US abd and kidney confirming mildly large liver, simple renal cysts. Vertigo ? PAST SURGICAL HISTORY COLONOSCOP W/ OR W/O [facility] SPEC ? 10/26/14 EGD W/O OR W/BRUSH/WASH ? 10/18/15 EGD W/O OR W/BRUSH/WASH ? 01/05/2018 I & D OR PERIRECTAL/ISCHIORECTAL ABSCESS 05/07/2018 LIVER BIOPSY ? MAMMO STEREOTACTIC CORE BIOPSY LT ?05/19 left --Christopher TOTAL ABDOM HYSTERECTOMY 1990 w/ BSO for cysts non cancerous MEDICATIONS: denies taking chronic med ALLERGIES: codeine. fentanyl REVIEW OF SYSTEMS: General - increased fatigue HEENT - some swallowing problems Respiratory - some shortness of breath Cardiac - some chest tightness GI - see HPI PHYSICAL EXAMINATION: Vital signs in chart - noted by me General - WD/WN WF in no apparent distress, alert and oriented HEENT - normocephalic, neck supple Respiratory - normal respiratory excursion, no adventitial sounds noted, no labored breathing noted Cardiac - regular Abdomen - soft with tenderness in left lower quadrant, no peritoneal signs Extremities - no pitting edema noted Skin - normal skin integrity Neuro -non focal Psych - calm and appropriate IMPRESSION: acute diverticulitis with small abscess DISCUSSION/PLAN: I have discussed the above with the patient. I have discussed consideration for elective sigmoid colectomy in the future. I doubt that any urgent surgery required in this hospitalization. continue IV hydration and IV antibiotics as you are doing clear liquid diet for now Patient is improving Will follow patient with you
[2021-03-12] MEDS: Famotidine 200 MG/20 ML MDV 20 MG in 0.9% Normal Saline (Pres. free 8 ML 300 MG IV ×2 (10:43→21:58)
[2021-03-12] MEDS: Dextrose 5%/0.9% NaCl 1,000 ML 75 ML IV (10:43)
[2021-03-12] MEDS: oxyCODONE 5 MG Tablet PO (10:46)
--- NOTE | 2021-03-12 11:33 | PN.HOSP_ITS ---
Hospitalist Note Subjective Patient seen and examined. She says abdominal pain is better today. She has no other complaints, and review of systems is otherwise negative. She has remained hemodynamically stable. O/E: Vitals: BP-124/74, NM-74, RR-18, Temp 98.2F Const alert, oriented x3 and no apparent distress Orientation / Consciousness: awake, oriented to person, oriented to place and oriented to time HEENT normocephalic and moist oral mucous membranes Eyes PERRL, EOMs intact bilaterally and conjunctivae normal Neck no lymphadenopathy Resp normal respiratory effort and clear to auscultation bilaterally Cardio regular rate, regular rhythm and no murmurs Peripheral Pulses: pulses 2+ throughout GI normal to inspection, nondistended, normoactive bowel sounds, minimal generalised tenderness, no guarding or rebound tenderness. Extremity normal to inspection Skin no rashes or lesions noted Lesions: no lesions Rashes: no rashes Trauma: no lacerations or abrasions Neuro CN's II-XII intact bilaterally, no focal motor deficits, no sensory deficits noted Psych mental status grossly normal and affect normal Assessment and Plan #Acute sigmoid diverticulitis with pelvic abscess * still NPO * pain is much better. * IV zosyn * IV zofran prn. IV morphine for pain * general surgery on board * wbc has trended down to 9.5. #Hemochromatosis * has phlebotomy every other month * #Hypertension: not on medication. BP now 124/74. will monitor, and if start oral meds if BP remains elevated. #COPD: not in exacerbation. On breathing treatment with bronchodilators #Nicotine dependence: counseled to quit. #TYpe 2 diabetes mellitus: * A1C is 5.6, so she doesnt meet criteria for diabetes mellitus. Will monitor * ISS. Accuchecks ACHS. * DVT prophylaxis: SCDs Visit Charges Inpatient E&M: 44855 Subs Hosp L2
[2021-03-12] MEDS: proCHLORPERazine 10 MG/2 ML Vial 5 MG IV ×2 (11:48→19:47)
[2021-03-12] MEDS: Ondansetron 4 MG/2 ML Vial IV (14:24)
[2021-03-12 16:15] VITALS: BP 148/84; PULSE 77; RESP 18; TEMP 36.7; O2SAT 98
[2021-03-12 21:50] VITALS: BP 162/76; PULSE 69; RESP 18; TEMP 36.9; O2SAT 98
[2021-03-13] MEDS: Dextrose 5%/0.9% NaCl 1,000 ML 75 ML IV ×2 (03:01→15:14)
[2021-03-13 03:04] VITALS: BP 132/75; PULSE 73; RESP 18; TEMP 36.6; O2SAT 97
[2021-03-13] MEDS: Morphine 2 MG/ML Syringe IV ×3 (04:06→11:36)
[2021-03-13] MEDS: 0.9% Saline Lock 10 ML Syringe IV ×4 (04:06→21:00)
[2021-03-13] MEDS: Ondansetron 4 MG/2 ML Vial IV ×3 (04:06→20:12)
[2021-03-13 06:38] LABS: Absolute Lymphocyte Count 1.06 X10^3/uL (0.83-4.51); Absolute Neutrophil Count 6.8 X10^3/uL (2.0-7.7); Basophil# 0.04 X10^3/uL; Basophil% 0.5 % (0-1); Eosinophil# 0.14 X10^3/uL; Eosinophils% 1.6 % (0-5); Hematocrit 31.7 % (37-47); Hemoglobin 10.1 g/dL (12.0-15.0); Lymphocyte # 1.06 X10^3/ul (0.83-4.51); Lymphocyte % 12.1 % (19-41); Mean Corp Hgb Conc 31.9 g/dL (32-36); Mean Corpuscular Hgb 28.5 pg (27.0-32.0); Mean Corpuscular Volume 89.5 fL (81-99); Mean Platelet Vol. 10.2 fl (6.2-12.0); Monocyte# 0.72 X10^3/uL; Monocyte% 8.2 % (0-10); NRBC Flagged by Analyzer 0 % (0-5); Neutrophil % 77.4 % (47-70); Platelet Count 277 K/mm3 (150-450); RBC Distribution Width CV 13.6 % (11.6-14.6); RBC Distribution Width SD 44.9 fl (35.1-43.9); Red Blood Count 3.54 M/mm3 (4.2-5.4); White Blood Count 8.8 K/mm3 (4.4-11.0)
[2021-03-13 06:55] LABS: Anion Gap 5 (5-15); BUN 5 mg/dL (7-18); BUN/Creat Ratio 11.9 RATIO (10-20); Calcium,Total 8.6 mg/dL (8.5-10.1); Chloride 106 mmol/L (98-107); Creatinine, Serum 0.42 mg/dL (0.55-1.02); EST Glomerular Filtration Rate 162 mL/min (>60); Est Glom Filt Rate - Afr Amer 196 mL/min (>60); Estimated Creatinine Clearance 123.87 ml/min; Glucose 109 mg/dL (74-106); Potassium 3.1 mmol/L (3.5-5.1); Sodium Level 138 mmol/L (136-145)
--- NOTE | 2021-03-13 07:48 | PN.HOSP_ITS ---
Subjective Subjective Patient seen and examined. She complains of persistent lower abdominal pain, which had improved yesterday, but is still present today. She complains of associated nausea but no vomiting. Review of systems otherwise negative. General surgery on board. She has remained hemodynamically stable. Objective Data Objective Data Vital Signs: Vital Signs Temp Pulse Resp BP Pulse Ox 98 F 73 18 132/75 H 97 03/13/21 03:04 03/13/21 03:04 03/13/21 03:04 03/13/21 03:04 03/13/21 03:04 Oxygen Delivery Method Room Air Weight: 124 lb 8.979 oz Body Mass Index (BMI) 18.8 Intake & Output: Intake and Output for Last 24 Hours 03/11/21 03/12/21 03/13/21 23:59 23:59 23:59 Intake Total 1110 / 1170 1886.67 / 1936.67 726.25 / 726.25 Output Total 1600 / 2350 750 / 750 Balance 1110 / 870 286.67 / -413.33 -23.75 / -23.75 Lab / Micro Data Result Diagrams: 03/13/21 06:24 03/13/21 06:24 Labs: Laboratory Results - last 24 hr 03/12/21 03/13/21 03/13/21 06:13 06:24 06:24 WBC 8.8 RBC 3.54 L Hgb 10.1 L Hct 31.7 L MCV 89.5 MCH 28.5 MCHC 31.9 L RDW Std Deviation 44.9 H RDW Coeff of Jamee 13.6 Plt Count 277 MPV 10.2 Immature Gran % (Auto) 0.200 Neut % (Auto) 77.4 H Lymph % (Auto) 12.1 L [place] % (Auto) 8.2 Eos % (Auto) 1.6 Baso % (Auto) 0.5 Absolute Neuts (auto) 6.8 Absolute Lymphs (auto) 1.06 Nucleated RBC % 0 Sodium 138 Potassium 3.1 L Chloride 106 Carbon Dioxide 27.0 Anion Gap 5 BUN 5 L Creatinine 0.42 L Estim Creat Clear Calc 123.87 Est GFR (MDRD) Af Amer 196 Est GFR (MDRD) Non-Af 162 BUN/Creatinine Ratio 11.9 Glucose 109 H Hemoglobin A1c 5.6 Calcium 8.6 Physical Exam Const alert, oriented x3 and no apparent distress Exam Limitations: no limitations HEENT head/scalp atraumatic and moist oral mucous membranes Head and Scalp: normocephalic Eyes PERRL, EOMs intact bilaterally and conjunctivae normal Neck no lymphadenopathy and supple Resp normal respiratory effort, no retractions, no use of accessory muscles and clear to auscultation bilaterally Cardio regular rate, regular rhythm, S1 normal heart sound, S2 normal heart sound and no murmurs GI normal to inspection, nondistended, normoactive bowel sounds GI Narrative: minimal abdominal tenderness on palpation, no guarding or rebound tenderness. Extremity normal to inspection, full ROM and no clubbing, cyanosis or edema Peripheral Pulses: Yes pulses 2+ throughout Skin no rashes or lesions noted Neuro oriented x3 and moves all extremities Sensorium / Orientation: awake and alert Psych affect normal Assessment & Plan Assessment/Plan (1) Sigmoid diverticulitis: (2) Abscess of sigmoid colon due to diverticulitis: PLAN: #Acute sigmoid diverticulitis with pelvic abscess * still complains of severe pain today; says it is aggravated by drinking fluids * will keep NPO * continue hydrating with IVF NS * on IV zosyn; IV morphine prn for pain * general surgery on board;wbc is 8.8. * await further rec's from general surgery #Hypokalemia: K is 3.1. WIll replace and trend. #Hemochromatosis * has phlebotomy every other month * #Hypertension: not on medication. BP today is 169/81. Will start on PO amlodipine 10mg daily. IV hydralazine prn. #COPD: not in exacerbation. On breathing treatment with bronchodilators #Nicotine dependence: counseled to quit. #? TYpe 2 diabetes mellitus: * A1C is 5.6, so she doesnt meet criteria for diabetes mellitus. Will monitor DVT prophylaxis: SCDs Charges/Coding Visit Charges Inpatient E&M: 21331 Subs Hosp L2
[2021-03-13] MEDS: proCHLORPERazine 10 MG/2 ML Vial 5 MG IV ×2 (08:39→16:11)
[2021-03-13] MEDS: Famotidine 200 MG/20 ML MDV 20 MG in 0.9% Normal Saline (Pres. free 8 ML 300 MG IV ×2 (08:39→21:00)
[2021-03-13 08:40] VITALS: BP 169/81; PULSE 64; RESP 18; TEMP 37; O2SAT 99
--- NOTE | 2021-03-13 10:43 | CASEMGMT ---
ARTIE ROCHA Assessment: Face to Face with pt for initial transition planning/care coordination assessment. ARTIE ROCHA introduced self and role at [facility], pt voices understanding and consents to assessment. Pt is A/O x4 and answers all questions appropriately at this time. Pt lying in bed in no distress. Care providers, pharmacy, and demographics verified/updated. Admitting Dx: acute diverticulitis with abscess PCP:[place] Specialists:Pt denies having any specialists. [facility]erred [facility]acy: [facility] Insurance: [facility], [place] Prescription Benefit: yes, [employer] LW/HPOA: Pt denies having a LW/DPOA. States she is working on it. She would appreciate assistance with filling it out. Notified Tory THACKER LNOK: Elizabeth Herman, friend; grandson Living Arrangements: Pt lives with her 15 year old grandson in a mobile home with 5-6 steps to enter with a rail. Pt states she is I in ADL's and denies concerns at home. Transportation: Pt drives self and denies concerns with transportation. DME/HHC/SNF: Pt has a cane and walking stick that she only uses if she has groin pain. Pt denies previous HHC or SNF stays. Pt states her friend is looking in on her grandson while she is here at the hospital. She states he is well taken care of. Pt states no concerns with going home at time of dc. Pt states no further concerns/needs. CM to follow. Advised pt to ask CM if any further question/concerns/needs arise, voices understanding. Pt Goal: Home Plan: Home
[2021-03-13 11:35] VITALS: BP 151/87; PULSE 73
[2021-03-13] MEDS: Potassium Chloride 10mEq/100mL 10 MEQ/100 ML IV.SOLN. 100 MEQ IV BOLUS ×4 (12:01→15:15)
[2021-03-13] MEDS: Morphine 4 MG/ML Syringe IV ×2 (12:54→16:11)
--- NOTE | 2021-03-13 14:22 | PN.SURG_ITS ---
Subjective Subjective Patient still complaint of pain Objective Data Objective Data Vital Signs: Vital Signs Temp Pulse Resp BP Pulse Ox 98.6 F 73 18 151/87 H 99 03/13/21 08:40 03/13/21 11:35 03/13/21 08:40 03/13/21 11:35 03/13/21 08:40 Oxygen Delivery Method Room Air Weight: 57.107 kg Body Mass Index (BMI) 18.8 Intake & Output: Intake and Output for Last 24 Hours 03/11/21 03/12/21 03/13/21 23:59 23:59 23:59 Intake Total 1110 / 1170 1886.67 / 1936.67 977.92 / 977.92 Output Total 1600 / 2350 750 / 750 Balance 1110 / 870 286.67 / -413.33 227.92 / 227.92 Lab / Micro Data Result Diagrams: 03/13/21 06:24 03/13/21 06:24 Labs: Laboratory Results - last 24 hr 03/13/21 03/13/21 06:24 06:24 WBC 8.8 RBC 3.54 L Hgb 10.1 L Hct 31.7 L MCV 89.5 MCH 28.5 MCHC 31.9 L RDW Std Deviation 44.9 H RDW Coeff of Jamee 13.6 Plt Count 277 MPV 10.2 Immature Gran % (Auto) 0.200 Neut % (Auto) 77.4 H Lymph % (Auto) 12.1 L [place] % (Auto) 8.2 Eos % (Auto) 1.6 Baso % (Auto) 0.5 Absolute Neuts (auto) 6.8 Absolute Lymphs (auto) 1.06 Nucleated RBC % 0 Sodium 138 Potassium 3.1 L Chloride 106 Carbon Dioxide 27.0 Anion Gap 5 BUN 5 L Creatinine 0.42 L Estim Creat Clear Calc 123.87 Est GFR (MDRD) Af Amer 196 Est GFR (MDRD) Non-Af 162 BUN/Creatinine Ratio 11.9 Glucose 109 H Calcium 8.6 Physical Exam Narrative abdomen is soft, still runner in left lower quadrant but less so than yesterday
--- NOTE | 2021-03-13 14:31 | CHAPLAIN ---
Type of Pastoral Visit _x__ Initial Visit ___ Follow-up Visit ___ On-call Visit ___ General Patient Visit ___ Spiritual Assessment ___ Family Conference ___ Bereavement ___ Rapid Response ___ Code Blue ___ Other (describe below) Pastoral Care Referral From _x__ Patient ___ Family ___ Nurse ___ Physician ___ Tobacco Stemmer ___ Brick Unloader Tender ___ Other (describe below) Sacrament/Intervention _x__ Active listening ___ Anointing ___ Orthodox ___ Bereavement ___ Communion ___ Eri exploration ___ _x__ Life review _x__ Prayer ___ Reconciliation ___ Sacrament of Sick _x__ Supportive presence ___ Wedding ___ Other (describe below) Pastoral Comments patient seeking prayer help; pt also discusses her goldberg with this illness and the disappointments of living with it; pt has concerns for family members too
[2021-03-13 15:15] VITALS: BP 133/76; PULSE 83; RESP 18; TEMP 37.2; O2SAT 100
[2021-03-13 21:46] VITALS: BP 152/73; PULSE 80; RESP 18; TEMP 36.8; O2SAT 99
[2021-03-13] MEDS: Temazepam 15 MG Capsule PO (21:49)
[2021-03-14] VITALS (7 sets, daily range): BP systolic 147–197; BP diastolic 77–100; PULSE 68–95; RESP 16–18; TEMP 36.6–37.1; O2SAT 95–100
[2021-03-14] MEDS: Dextrose 5%/0.9% NaCl 1,000 ML 75 ML IV ×2 (04:28→17:27)
[2021-03-14 06:10] LABS: Absolute Lymphocyte Count 1.46 X10^3/uL (0.83-4.51); Absolute Neutrophil Count 4.8 X10^3/uL (2.0-7.7); Basophil# 0.03 X10^3/uL; Basophil% 0.4 % (0-1); Eosinophil# 0.22 X10^3/uL; Eosinophils% 3.1 % (0-5); Hematocrit 32.8 % (37-47); Hemoglobin 10.3 g/dL (12.0-15.0); Lymphocyte # 1.46 X10^3/ul (0.83-4.51); Lymphocyte % 20.6 % (19-41); Mean Corp Hgb Conc 31.4 g/dL (32-36); Mean Corpuscular Hgb 28.1 pg (27.0-32.0); Mean Corpuscular Volume 89.6 fL (81-99); Monocyte% 8.5 % (0-10); NRBC Flagged by Analyzer 0 % (0-5); Neutrophil # 4.76 X10^3/uL (2.7-7.7); Neutrophil % 67.1 % (47-70); Platelet Count 296 K/mm3 (150-450); RBC Distribution Width CV 13.3 % (11.6-14.6); RBC Distribution Width SD 43.8 fl (35.1-43.9); Red Blood Count 3.66 M/mm3 (4.2-5.4); White Blood Count 7.1 K/mm3 (4.4-11.0)
[2021-03-14 06:36] LABS: Anion Gap 7 (5-15); BUN 3 mg/dL (7-18); BUN/Creat Ratio 6.8 RATIO (10-20); Calcium,Total 8.6 mg/dL (8.5-10.1); Chloride 107 mmol/L (98-107); Creatinine, Serum 0.44 mg/dL (0.55-1.02); EST Glomerular Filtration Rate 152 mL/min (>60); Est Glom Filt Rate - Afr Amer 184 mL/min (>60); Estimated Creatinine Clearance 119.71 ml/min; Glucose 104 mg/dL (74-106); Potassium 3.3 mmol/L (3.5-5.1); Sodium Level 141 mmol/L (136-145)
[2021-03-14] MEDS: Morphine 4 MG/ML Syringe IV (08:47)
[2021-03-14] MEDS: 0.9% Saline Lock 10 ML Syringe IV ×2 (08:47→09:48)
[2021-03-14] MEDS: Ondansetron 4 MG/2 ML Vial IV (08:47)
[2021-03-14] MEDS: Famotidine 200 MG/20 ML MDV 20 MG in 0.9% Normal Saline (Pres. free 8 ML 300 MG IV (09:47)
--- NOTE | 2021-03-14 10:45 | NURSING ---
PT REFUSED NEW MED NORVASC. PT STATES WHEN SHE TOOK [facility] 4-5 YRS AGO, HER MD TOLD HER HE DIDN'T WANT HER ON BP MEDS DUE TO POSSIBLE REACTION/SIDE AFFECTS. PT GIVEN HANDOUT ON NORVASC. PT STATES I'D LIKE TO THINK ABOUT IT.
--- NOTE | 2021-03-14 11:12 | PN.HOSP_ITS ---
Subjective Subjective Patient seen and examined. She feels much better today and states abdominal pain has improved. She feels ready to try a diet. Review of systems otherwise negative. She has remained hemodynamically stable. Objective Data Objective Data Vital Signs: Vital Signs Temp Pulse Resp BP Pulse Ox 98.2 F 70 18 151/93 H 99 03/14/21 08:30 03/14/21 08:30 03/14/21 08:30 03/14/21 08:30 03/14/21 08:30 Oxygen Delivery Method Room Air Weight: 126 lb 1.671 oz Body Mass Index (BMI) 18.8 Intake & Output: Intake and Output for Last 24 Hours 03/12/21 03/13/21 03/14/21 23:59 23:59 23:59 Intake Total 1886.67 / 1936.67 2354.17 / 2354.17 1102.5 / 1102.5 Output Total 1600 / 2350 2950 / 2950 550 / 550 Balance 286.67 / -413.33 -595.83 / -595.83 552.5 / 552.5 Lab / Micro Data Result Diagrams: 03/14/21 05:44 03/14/21 05:44 Labs: Laboratory Results - last 24 hr 03/14/21 03/14/21 05:44 05:44 WBC 7.1 RBC 3.66 L Hgb 10.3 L Hct 32.8 L MCV 89.6 MCH 28.1 MCHC 31.4 L RDW Std Deviation 43.8 RDW Coeff of Jamee 13.3 Plt Count 296 MPV 10.0 Immature Gran % (Auto) 0.300 Neut % (Auto) 67.1 Lymph % (Auto) 20.6 [place] % (Auto) 8.5 Eos % (Auto) 3.1 Baso % (Auto) 0.4 Absolute Neuts (auto) 4.8 Absolute Lymphs (auto) 1.46 Nucleated RBC % 0 Sodium 141 Potassium 3.3 L Chloride 107 Carbon Dioxide 27.0 Anion Gap 7 BUN 3 L Creatinine 0.44 L Estim Creat Clear Calc 119.71 Est GFR (MDRD) Af Amer 184 Est GFR (MDRD) Non-Af 152 BUN/Creatinine Ratio 6.8 L Glucose 104 Calcium 8.6 Physical Exam Const alert, oriented x3 and no apparent distress Exam Limitations: no limitations HEENT head/scalp atraumatic and moist oral mucous membranes Head and Scalp: normocephalic Eyes PERRL, EOMs intact bilaterally and conjunctivae normal Neck no lymphadenopathy and supple Resp normal respiratory effort, no retractions, no use of accessory muscles and clear to auscultation bilaterally Cardio regular rate, regular rhythm, S1 normal heart sound, S2 normal heart sound and no murmurs GI normal to inspection, nondistended, normoactive bowel sounds GI Narrative: minimal abdominal tenderness on palpation, no guarding or rebound tenderness. Extremity normal to inspection, full ROM and no clubbing, cyanosis or edema Peripheral Pulses: Yes pulses 2+ throughout Skin no rashes or lesions noted Neuro oriented x3 and moves all extremities Sensorium / Orientation: awake and alert Psych affect normal Assessment & Plan Assessment/Plan (1) Sigmoid diverticulitis: (2) Abscess of sigmoid colon due to diverticulitis: PLAN: #Acute sigmoid diverticulitis with pelvic abscess * abdominal pain is much better today * will start on clear liquid diet, to advance slowly as tolerated. * DC IVF once patient starts oral diet. * on IV zosyn; IV morphine prn for pain * general surgery on board; per surgery, to continue IV antibiotics for now. Abscess is about the size of a quarter or half dollar and if patient has surgery now, she may require a colostomy, according to general surgery. * #Hypokalemia: K is 3.3. WIll replace and trend. #Hemochromatosis * has phlebotomy every other month * #Hypertension: started on PO amlodipine 10mg daily during this admission. IV hydralazine prn. #COPD: not in exacerbation. On breathing treatment with bronchodilators #Nicotine dependence: counseled to quit. DVT prophylaxis: SCDs Charges/Coding Visit Charges Inpatient E&M: 00406 Subs Hosp L2
--- NOTE | 2021-03-14 11:23 | CASEMGMT ---
Social Work SW received referral that pt was interested in advance directives. SW met with pt and introduced self and role of SW. SW explained living will and health care POA in depth. Pt does not want to complete documents at this time. SW explained order of legal decision makers and pt stating she would not want dgt to make her medical decisions. SW again reviewed importance of HCPOA. Pt is understanding and will consider options. SW provided pt with SW advance directive Rack Card and pt aware she can make an appointment as outpatient to complete documents. Pt appreciative of information. CALEB Zhao
--- NOTE | 2021-03-14 12:36 | PCM.PN.SRG ---
Subjective Subjective patient seems to have turned the corner, feels greatly improved minimal flatus Objective Data Objective Data Vital Signs: Vital Signs Temp Pulse Resp BP Pulse Ox 98.2 F 70 18 151/93 H 99 03/14/21 08:30 03/14/21 08:30 03/14/21 08:30 03/14/21 08:30 03/14/21 08:30 Oxygen Delivery Method Room Air Weight: 57.2 kg Body Mass Index (BMI) 18.8 Intake & Output: Intake and Output for Last 24 Hours 03/12/21 03/13/21 03/14/21 23:59 23:59 23:59 Intake Total 1886.67 / 1936.67 2354.17 / 2354.17 1102.5 / 1102.5 Output Total 1600 / 2350 2950 / 2950 550 / 550 Balance 286.67 / -413.33 -595.83 / -595.83 552.5 / 552.5 Lab / Micro Data Result Diagrams: 03/14/21 05:44 03/14/21 05:44 Labs: Laboratory Results - last 24 hr 03/14/21 03/14/21 05:44 05:44 WBC 7.1 RBC 3.66 L Hgb 10.3 L Hct 32.8 L MCV 89.6 MCH 28.1 MCHC 31.4 L RDW Std Deviation 43.8 RDW Coeff of Jamee 13.3 Plt Count 296 MPV 10.0 Immature Gran % (Auto) 0.300 Neut % (Auto) 67.1 Lymph % (Auto) 20.6 [place] % (Auto) 8.5 Eos % (Auto) 3.1 Baso % (Auto) 0.4 Absolute Neuts (auto) 4.8 Absolute Lymphs (auto) 1.46 Nucleated RBC % 0 Sodium 141 Potassium 3.3 L Chloride 107 Carbon Dioxide 27.0 Anion Gap 7 BUN 3 L Creatinine 0.44 L Estim Creat Clear Calc 119.71 Est GFR (MDRD) Af Amer 184 Est GFR (MDRD) Non-Af 152 BUN/Creatinine Ratio 6.8 L Glucose 104 Calcium 8.6 Physical Exam Narrative abdomen is soft - much less tender in left lower quadrant, no guarding
[2021-03-14] MEDS: Acetaminophen 325 MG Tablet 650 MG PO (14:42)
[2021-03-14] MEDS: hydrALAZINE 20 MG/ML Vial 10 MG IV (14:42)
--- NOTE | 2021-03-14 17:11 | CT_ITS ---
INDICATION: INCREASED ABD PAIN, DISTENTION, ABSCESS EXAMINATION: CT Abdomen And Pelvis W/ Contrast Injection TECHNIQUE: Helically acquired images were obtained of the abdomen and pelvis after IV contrast. A radiation dose optimization technique was used for this scan. IV Contrast dosage and agent: IV 100mL Isovue-300 Oral contrast: None. COMPARISON: 03/11/2021. FINDINGS: Visualized lung bases: Unremarkable Liver: Unremarkable Gallbladder: Unremarkable Spleen: Unremarkable Pancreas: Unremarkable Adrenal Glands: 2.1 cm intermediate density left adrenal nodule. Kidneys: 2.1 cm intermediate density cyst in the right upper pole. Vasculature: Moderate aortoiliac atherosclerotic disease. GI Tract: Scattered colonic diverticula. There is redemonstration of a short segment of sigmoid colon demonstrating circumferential wall thickening and surrounding mesenteric fat stranding. There is also redemonstration of a partially loculated rim-enhancing fluid collection adjacent to the sigmoid colon in the left hemipelvis now measuring 3.4 x 2.1 x 3.5 cm, previously 2.7 x 1.3 x 1.9 cm. There is also new nonloculated small volume free fluid in the midline pelvis. No free air. Lymphadenopathy: None Peritoneum: No ascites. Bladder: Unremarkable Reproductive organs: Status post hysterectomy. Bones/Soft tissues: No suspicious osseous or soft tissue lesions CT/Abdomen/Pelvis WITH Contrast IMPRESSION: Redemonstration of acute sigmoid diverticulitis with increased size of adjacent now 3.5 cm partially loculated fluid collection as well as new nonloculated small volume free fluid in the midline pelvis. Again recommend follow-up multiphase CT or MR abdomen for a 1.8 cm intermediate density left adrenal nodule and 2.1 cm intermediate density right upper pole renal cyst. Electronically Signed: Kenneth Baker MD at 19:04 EDT Tel , Service support ,
--- NOTE | 2021-03-14 17:17 | NURSING ---
PT AMBULATING IN [place]. APPROACHED THIS NURSE STATING CAN YOU GET AHOLD OF THE DR? I WANT TO GO HOME. WHEN ASKED WHY, PT STATES NOTHING IS WORKING. SPOKE WITH DR LEE REGARDING SAME. NEW ORDER FOR CT ABD. DR GARCIA ALSO NOTIFIED. STATES I TOLD HER THIS WILL TAKE TIME. INFORMED MS THAT PT HAS BEEN AMBULATING IN [place]ALLS, BYPO TYMPANIC BS, NO FLATUS.
[2021-03-14] MEDS: Famotidine 200 MG/20 ML MDV 20 MG in 0.9% Normal Saline (Pres. free 8 ML 330 MG IV (21:42)
[2021-03-15 02:30] VITALS: BP 142/80; PULSE 72; RESP 16; TEMP 36.9; O2SAT 99
[2021-03-15 06:45] LABS: Absolute Lymphocyte Count 1.28 X10^3/uL (0.83-4.51); Absolute Neutrophil Count 5.8 X10^3/uL (2.0-7.7); Basophil# 0.03 X10^3/uL; Basophil% 0.4 % (0-1); Eosinophil# 0.27 X10^3/uL; Eosinophils% 3.4 % (0-5); Hemoglobin 10.7 g/dL (12.0-15.0); Lymphocyte # 1.28 X10^3/ul (0.83-4.51); Lymphocyte % 16.2 % (19-41); Mean Corp Hgb Conc 32.4 g/dL (32-36); Mean Corpuscular Hgb 28.6 pg (27.0-32.0); Mean Corpuscular Volume 88.2 fL (81-99); Mean Platelet Vol. 9.8 fl (6.2-12.0); Monocyte# 0.55 X10^3/uL; Monocyte% 6.9 % (0-10); NRBC Flagged by Analyzer 0 % (0-5); Neutrophil # 5.78 X10^3/uL (2.7-7.7); Platelet Count 324 K/mm3 (150-450); RBC Distribution Width CV 13.6 % (11.6-14.6); RBC Distribution Width SD 44.3 fl (35.1-43.9); Red Blood Count 3.74 M/mm3 (4.2-5.4); White Blood Count 7.9 K/mm3 (4.4-11.0)
[2021-03-15 07:14] LABS: Anion Gap 7 (5-15); BUN 3 mg/dL (7-18); BUN/Creat Ratio 6.9 RATIO (10-20); Calcium,Total 8.8 mg/dL (8.5-10.1); Chloride 107 mmol/L (98-107); Creatinine, Serum 0.44 mg/dL (0.55-1.02); EST Glomerular Filtration Rate 155 mL/min (>60); Est Glom Filt Rate - Afr Amer 187 mL/min (>60); Estimated Creatinine Clearance 119.71 ml/min; Glucose 91 mg/dL (74-106); Potassium 3.2 mmol/L (3.5-5.1); Sodium Level 140 mmol/L (136-145)
[2021-03-15 08:28] VITALS: BP 138/80; PULSE 80; RESP 16; TEMP 36.8; O2SAT 98
[2021-03-15 08:30] VITALS: PULSE 82; O2SAT 98
[2021-03-15 10:19] VITALS: BP 159/76; PULSE 76; RESP 20; TEMP 36.7; O2SAT 96
[2021-03-15] MEDS: Potassium Chloride Oral Tablet 20 MEQ 60 MEQ PO (10:26)
[2021-03-15] MEDS: Dextrose 5%/0.9% NaCl 1,000 ML 75 ML IV (10:31)
--- NOTE | 2021-03-15 12:48 | DS.PCM_ITS ---
Providers Date of Admission: 03/11/21 Primary Care Physician: Dr. Elliott Porter MD Consultations 03/11/21 22:05 Consult: General Surgery Routine Consulting Provider: Kathryn Macedo Reason for Consult: Acute sigmoid diverticulitis w/ abscess EMERGENT Consult: No MD Notified: Yes Date Notified: 03/11/21 Time Notified: 21:11 Method of Notification: called per ED. Reason For Visit: ACUTE DIVERTICULITIS WITH ABSCESS Diagnosis Discharge Diagnosis (1) Sigmoid diverticulitis: Status: Acute Code(s): K57.32 - Diverticulitis of large intestine without perforation or abscess without bleeding (2) Abscess of sigmoid colon due to diverticulitis: Status: Acute Code(s): K57.20 - Diverticulitis of large intestine with perforation and abscess without bleeding Medications at Discharge Home Medications NK 03/11/21 Hospital Course Operations None Procedures None Summary of Care Provided Minutes Spent on Discharge: 45 Hospital Course: Patient is a 60-year-old female with a past medical history as outlined which includes COPD, fibromyalgia and nicotine dependence as well as hepatitis and hemochromatosis. She was admitted through the ED on 03/11/2021 with a complaint of abdominal pain which has been going on for about a week. Pain was mainly cramping and occasionally stabbing, periumbilical, with no associated vomiting but she had nausea and also had 1 episode of diarrhea on the day of presentation. She also had subjective fever but no chills. CT of the abdomen and pelvis done showed acute sigmoid diverticulitis with pelvic abscess. General surgery was consulted and she was admitted to be managed for acute sigm oid diverticulitis with pelvic abscess. She was started on IV Zosyn and kept n.p.o. and hydrated with IV fluids. Patient's pain was not improving. Initial plan was for conservative management. However pain was persistent so a repeat CT of the abdomen was done which showed increase in the pelvic abscess to 3.5 cm. Plan was to get drainage of the abscess by interventional radiology; the radiologist and [facility] declined doing it because of presence of too much bowel in the area, and per discussion with general surgery, it was decided to transfer patient to [facility] for further evaluation and drainage of abscess by interventional radiologist. Accepting physician at [facility] is Dr Dobbs. Of note, patient was also noted to have elevated BP, and she was started on PO amlodipine 10mg daily. Patient however refused to take it as she said she had been told by her PCP that she didnt need blood pressure medications. She is therefore to follow up with her PCP for monitoring of her BP and start of medications as needed. Patient was seen and examined prior to discharge. She still complained of abdominal pain. Review of systems was otherwise negative. Labs and vitals reviewed. Home meds reviewed and reconciled. Physical Exam Const alert, oriented x3 and no apparent distress General Appearance: cooperative and comfortable Exam Limitations: no limitations HEENT head/scalp atraumatic and moist oral mucous membranes Eyes PERRL, EOMs intact bilaterally and conjunctivae normal Neck no lymphadenopathy and supple Resp normal respiratory effort, no retractions, no use of accessory muscles and clear to auscultation bilaterally Cardio regular rate, regular rhythm, S1 normal heart sound, S2 normal heart sound and no murmurs GI normal to inspection, nondistended, normoactive bowel sounds GI Narrative: mild abdominal tenderness on palpation, no guarding or rebound tenderness. Extremity normal to inspection, full ROM and no clubbing, cyanosis or edema Skin no rashes or lesions noted Neuro oriented x3 and moves all extremities Sensorium / Orientation: awake and alert Psych affect normal Weight / BMI Weight Weight: 129 lb 9 oz Body Mass Index (BMI) 18.8 ABG / Lab / Microbiology Data Result Diagrams: 03/15/21 06:28 03/15/21 06:28 Laboratory: Laboratory Results - last 24 hr 03/15/21 03/15/21 06:28 06:28 WBC 7.9 RBC 3.74 L Hgb 10.7 L Hct 33.0 L MCV 88.2 MCH 28.6 MCHC 32.4 RDW Std Deviation 44.3 H RDW Coeff of Jamee 13.6 Plt Count 324 MPV 9.8 Immature Gran % (Auto) 0.100 Neut % (Auto) 73.0 H Lymph % (Auto) 16.2 L [place] % (Auto) 6.9 Eos % (Auto) 3.4 Baso % (Auto) 0.4 Absolute Neuts (auto) 5.8 Absolute Lymphs (auto) 1.28 Nucleated RBC % 0 Sodium 140 Potassium 3.2 L Chloride 107 Carbon Dioxide 26.0 Anion Gap 7 BUN 3 L Creatinine 0.44 L Estim Creat Clear Calc 119.71 Est GFR (MDRD) Af Amer 187 Est GFR (MDRD) Non-Af 155 BUN/Creatinine Ratio 6.9 L Glucose 91 Calcium 8.8 Radiography Diagnostic Testing: Radiology Impression Abdomen/Pelvis CT 03/14/21 17:11 IMPRESSION: Redemonstration of acute sigmoid diverticulitis with increased size of adjacent now 3.5 cm partially loculated fluid collection as well as new nonloculated small volume free fluid in the midline pelvis. Again recommend follow-up multiphase CT or MR abdomen for a 1.8 cm intermediate density left adrenal nodule and 2.1 cm intermediate density right upper pole renal cyst. Electronically Signed: Kenneth Baker MD at 19:04 EDT Tel , Service support , Meaningful Use Info Meaningful Use Diagnoses (Choose all that apply): None applicable Discharge Plan Admission Admit Date/Time: 03/11/21 21:14 Primary Reason for Your Visit: acute diverticulitis with pelvic abscess Attending Provider: Kelsie Deleon Primary Care Provider: Elliott Porter Consulting Providers: Kathryn Macedo Discharge Orders/Prescriptions Prescriptions: No Action NK RF: 0 Referrals / Follow Up: Elliott Porter MD [Primary Care Provider] - Charges/Coding Visit Charges Inpatient E&M: 13819 Disch Hosp
[2021-03-15 15:05] VITALS: BP 145/87; PULSE 80; RESP 18; TEMP 36.9; O2SAT 98
--- NOTE | 2021-03-15 15:07 | NURSING ---
This RN reviewed SN charting
--- NOTE | 2021-03-15 17:14 | PCM.PN.SRG ---
Subjective Subjective Yesterday when I saw patient she stated that she felt improved, however later in the afternoon she developed more pain She underwent repeat CT scan which showed enlarging abscess - from 2.5 cm to 3.5 cm and small amount of free fluid - no free air Objective Data Objective Data Vital Signs: Vital Signs Temp Pulse Resp BP Pulse Ox 98.5 F 80 18 145/87 H 98 03/15/21 15:05 03/15/21 15:05 03/15/21 15:05 03/15/21 15:05 03/15/21 15:05 Oxygen Delivery Method Room Air Weight: 58.769 kg Body Mass Index (BMI) 18.8 Intake & Output: Intake and Output for Last 24 Hours 03/13/21 03/14/21 03/15/21 23:59 23:59 23:59 Intake Total 2354.17 / 2354.17 2136.25 / 2136.25 1100 / 1100 Output Total 2950 / 2950 550 / 550 Balance -595.83 / -595.83 1586.25 / 1586.25 1100 / 1100 Lab / Micro Data Result Diagrams: 03/15/21 06:28 03/15/21 06:28 Labs: Laboratory Results - last 24 hr 03/15/21 03/15/21 06:28 06:28 WBC 7.9 RBC 3.74 L Hgb 10.7 L Hct 33.0 L MCV 88.2 MCH 28.6 MCHC 32.4 RDW Std Deviation 44.3 H RDW Coeff of Jamee 13.6 Plt Count 324 MPV 9.8 Immature Gran % (Auto) 0.100 Neut % (Auto) 73.0 H Lymph % (Auto) 16.2 L [place] % (Auto) 6.9 Eos % (Auto) 3.4 Baso % (Auto) 0.4 Absolute Neuts (auto) 5.8 Absolute Lymphs (auto) 1.28 Nucleated RBC % 0 Sodium 140 Potassium 3.2 L Chloride 107 Carbon Dioxide 26.0 Anion Gap 7 BUN 3 L Creatinine 0.44 L Estim Creat Clear Calc 119.71 Est GFR (MDRD) Af Amer 187 Est GFR (MDRD) Non-Af 155 BUN/Creatinine Ratio 6.9 L Glucose 91 Calcium 8.8 Radiography Diagnostic Testing: Radiology Impression Abdomen/Pelvis CT 03/14/21 17:11 IMPRESSION: Redemonstration of acute sigmoid diverticulitis with increased size of adjacent now 3.5 cm partially loculated fluid collection as well as new nonloculated small volume free fluid in the midline pelvis. Again recommend follow-up multiphase CT or MR abdomen for a 1.8 cm intermediate density left adrenal nodule and 2.1 cm intermediate density right upper pole renal cyst. Electronically Signed: Kenneth Baker MD at 19:04 EDT Tel , Service support , Physical Exam Narrative Abdomen -increased tenderness in left lower quadrant
[2021-03-15 18:02] VITALS: BP 148/96; PULSE 79; RESP 20; TEMP 36.7; O2SAT 94
--- NOTE | 2021-03-15 18:09 | NURSING ---
Report given to Eva Wakefield at [facility].
== END 2021-03-15 18:40 | disposition short-term general hospital (02) | DRG 392 ==
LOC: ED 20:30 → MS3 23:14
PROVIDERS: Admitting Provider Family Medicine; Emergency Provider Emergency Medicine; PCP Family Medicine; Visit Provider Student in an Organized Health Care Education/Training Program
DX: K57.20 Diverticulitis of large intestine with perforation and abscess without bleeding (principal); F17.210 Nicotine dependence, cigarettes, uncomplicated; E83.119 Hemochromatosis, unspecified; Z86.19 Personal history of other infectious and parasitic diseases; J44.9 Chronic obstructive pulmonary disease, unspecified; R73.03 Prediabetes; I10 Essential (primary) hypertension; E87.6 Hypokalemia
CPT/HCPCS: 36415; 74177; 80048; 80053; 81001; 82962; 83036; 83690; 85025; 97802; 97803; 99251; 99284; 99406; J7030; J7050; Q9967; A4216; G0463; J2405; J3490

== ENCOUNTER 2021-03-20 13:24 | Emergency (ER) | payer MEDICARE, MEDICAID, SELFPAY ==
[2021-03-20 13:25] VITALS: BP 162/95; PULSE 58; RESP 18; TEMP 36.4; O2SAT 100; BMI 18.8
--- NOTE | 2021-03-20 15:13 | ED.RN ---
PT LWBS [id number]
== END 2021-03-20 15:13 | disposition left against medical advice (07) ==
LOC: ED 15:15
PROVIDERS: PCP Family Medicine
DX: R11.0 Nausea (principal)

== ENCOUNTER 2021-05-15 15:51 | Emergency (ER) | payer MEDICARE, MEDICAID, SELFPAY ==
[2021-05-15 15:51] VITALS: BP 126/87; PULSE 100; RESP 18; TEMP 36.4; O2SAT 96; BMI 18.0
--- NOTE | 2021-05-15 17:16 | CT_ITS ---
INDICATION: abd pain -- IV PO Contrast EXAMINATION: CT Abdomen And Pelvis W/ Contrast Injection TECHNIQUE: Helically acquired images were obtained of the abdomen and pelvis after IV contrast. A radiation dose optimization technique was used for this scan. IV Contrast dosage and agent: Oral and amp; IV Gastrografin and amp; 100mL Isovue-370 Oral contrast: Yes. COMPARISON: 03/14/2021. FINDINGS: Visualized lung bases: Unremarkable Liver: Unremarkable Gallbladder: Unremarkable Spleen: Unremarkable Pancreas: Unremarkable Adrenal Glands: 2.1 cm intermediate density left adrenal nodule. Kidneys: 2.1 cm intermediate density cyst in the right upper pole. Vasculature: Moderate aortoiliac atherosclerotic disease. GI Tract: Scattered colonic diverticula. There is redemonstration of a short segment of sigmoid colon demonstrating circumferential wall thickening and surrounding mesenteric fat stranding. There is also redemonstration of a partially loculated rim-enhancing fluid collection adjacent to the sigmoid colon in the left hemipelvis now measuring 2.6 x 1.5 cm, previously 3.4 x 2.1 cm. No free air. Lymphadenopathy: None Peritoneum: No ascites. Bladder: Unremarkable Reproductive organs: Status post hysterectomy. Bones/Soft tissues: No suspicious osseous or soft tissue lesions CT/Abdomen/Pelvis WITH Contrast IMPRESSION: Redemonstration of acute sigmoid diverticulitis with decreased size of adjacent now 2.6 cm partially loculated fluid collection. Again recommend follow-up multiphase CT or MR abdomen for a 1.8 cm intermediate density left adrenal nodule and 2.1 cm intermediate density right upper pole renal cyst. Electronically Signed: Kenneth Baker MD at 19:39 EDT Tel , Service support ,
--- NOTE | 2021-05-15 17:18 | EDS_ITS ---
HPI History of Present Illness Chief Complaint: General Illness Informant: patient Onset/Context/Timing Onset: Weeks Current Severity: Mild Maximum Severity: Moderate Narrative Narrative: Patient reports a history of diverticulitis with an abscess in March of this year. When they went to put a drain in it had now resolved. She has been following with a GI specialist in [place] and is scheduled to undergo colonoscopy on the . Patient states for the last week she is noted decreased stool output and increased abdominal pain. She is concerned that her diverticulitis might be back. She called her GI doctor this morning who asked her to come to the hospital to get blood work and a CT scan performed. Patient states that she is also had right-sided neck pain with pain along the bilateral shoulders for a long time. She said this has been intermittent but her doctors never really worked it up. She has also had intermittent chest pain for some time that seem to be somewhat worse last night. [facility] Medical History (Updated 05/15/21 @ 21:[address] Nan Vidales MD) Chest pain Chronic pain COPD (chronic obstructive pulmonary disease) Diverticulitis Hepatitis Hypertension IBS (irritable bowel syndrome) Smoker TIA (transient ischemic attack) Home Medications Lactobacillus acidophilus [Florajen Acidophilus] See Rx Instructions .ROUTE .COMPLEX 05/15/21 [History Last Taken Unknown] ciprofloxacin HCl [Cipro] 500 mg PO BID #20 tab 05/15/21 [Rx Last Taken Unknown] diazepam 10 mg PO X1 PRN 05/15/21 [History Last Taken Unknown] metronidazole 500 mg PO Q8H 14 Days #42 tab 05/15/21 [Rx Last Taken Unknown] Allergy/AdvReac Type Severity Reaction Status Date / Time codeine Allergy nausea, Verified 05/15/21 17:45 hypotensive fentanyl AdvReac Nausea, Verified 05/15/21 17:45 hypotensive Social History Smoking Status: Current every day smoker tobacco type: cigarettes ROS ROS ED Constitutional Constitutional ED: Denies chills or fever(s) Eyes Eyes: Denies change in vision ENT ENT ED: Reports other Details: Right neck pain ; Denies sore throat Cardiovascular Cardiovascular: Reports chest pain Respiratory/Chest Respiratory/Chest: Denies cough or dyspnea Gastrointestinal Gastrointestinal: Reports abdominal pain and constipation; Denies diarrhea, nausea or vomiting Genitourinary Genitourinary ED: Denies dysuria Musculoskeletal Musculoskeletal: Denies back pain Integumentary Denies rash Neurologic Neurologic: Denies headache(s) or weakness Psychiatric Psychiatric: Denies anxiety or depression Allergic/Immunologic Allergic/Immunologic ED: Denies urticaria EXAM Physical Exam Const Vital Signs: 05/15/21 15:51 05/15/21 18:04 Temperature 97.6 F L Temperature Source Temporal Pulse Rate 100 Respiratory Rate 18 Respiratory Effort Normal Non-Labored Respiratory Pattern Normal Blood Pressure 126/87 H Blood Pressure Mean 100 Pulse Ox 96 Oxygen Delivery Method Room Air Positive well nourished and well developed General Appearance ED: well developed HEENT Reports normocephalic and head/scalp atraumatic Eyes PERRL and EOMs intact bilaterally Neck supple Chest Wall inspection of chest normal and palpation of chest normal Resp normal respiratory effort and clear to auscultation bilaterally Cardio regular rate and regular rhythm GI normal to inspection, nondistended, normoactive bowel sounds Palpation: soft and tender LLQ Extremity normal to inspection Neuro oriented x3 and no sensory deficits noted Sensorium / Orientation: alert Motor Exam: strength 5/5 throughout Psych mental status grossly normal Skin no rashes or lesions noted MDM MDM MDM Narrative Medical decision making narrative: Lab work and CT scan abdomen pelvis was obtained. EKG obtained. Lab Data Attestation: I reviewed the patient's lab results. Labs: Laboratory Results - last 24 hr 05/15/21 05/15/21 05/15/21 17:40 17:50 17:50 WBC 6.5 RBC 4.24 Hgb 12.1 Hct 38.4 MCV 90.6 MCH 28.5 MCHC 31.5 L RDW Std Deviation 47.6 H RDW Coeff of Jamee 14.5 Plt Count 323 MPV 10.6 Immature Gran % (Auto) 0.200 Neut % (Auto) 50.3 Lymph % (Auto) 33.9 [place] % (Auto) 11.5 H Eos % (Auto) 3.5 Baso % (Auto) 0.6 Absolute Neuts (auto) 3.3 Absolute Lymphs (auto) 2.22 Nucleated RBC % 0 Sodium 139 Potassium 3.6 Chloride 105 Carbon Dioxide 30.0 Anion Gap 4 L BUN 17 Creatinine 0.53 L Estim Creat Clear Calc 89.47 Est GFR (MDRD) Af Amer 149 Est GFR (MDRD) Non-Af 123 BUN/Creatinine Ratio 31.9 H Glucose 94 Calcium 8.9 Total Bilirubin 0.30 Direct Bilirubin 0.10 AST 15 ALT 16 Alkaline Phosphatase 117 Troponin I High Sens 5 Total Protein 7.9 Albumin 3.3 Globulin 4.6 H Lipase 117 Urine Color Yellow Urine Clarity Clear Urine pH 5.0 Ur Specific [place] 1.030 Urine Protein 15 H Urine Glucose (UA) Normal Urine Ketones Negative Urine Occult Blood 150 H Urine Nitrite Negative Urine Bilirubin Negative Urine Urobilinogen 1 H Ur Leukocyte Esterase Negative Urine RBC 10-25 SEEN Urine WBC 0-5 SEEN Ur Squamous Epith Cells 0 SEEN Amorphous Sediment 1+ Urine Bacteria 0 SEEN Urine Mucus 0 SEEN Radiography Diagnostic Testing: Radiology Impression Abdomen/Pelvis CT 05/15/21 17:16 IMPRESSION: Redemonstration of acute sigmoid diverticulitis with decreased size of adjacent now 2.6 cm partially loculated fluid collection. Again recommend follow-up multiphase CT or MR abdomen for a 1.8 cm intermediate density left adrenal nodule and 2.1 cm intermediate density right upper pole renal cyst. Electronically Signed: Kenneth Baker MD at 19:39 EDT Tel , Service support , EKG Initial EKG: Attestation: I personally reviewed and interpreted this EKG as follows: Interpretation: Sinus Rhythm (Sinus at 98. Mild inferior ST depression, approximate 1/2 mm.) Treatment and Re-Evaluation Comments:: Test results discussed with patient. I was able to review her prior records from March. She was initially admitted here on March 11 with a small abscess measuring 1.9 x 1.6 x 2.4 cm. Due to continued pain, CT was repeated 3 days later and at that time abscess was slightly larger. After she was transferred to [facility] for drain placement there was no fluid collection appreciated. Patient is ordered a dose of Zosyn here. I spoke with the patient's surgeon, Dr. Donahue. He states that the patient had a CT scan done at [place] last month that showed a very small fluid collection. We discussed tonight's findings. He is comfortable with the patient being given a dose of IV antibiotics here and then home on antibiotics. He wants to see the patient in the office within the next 5 to 7 days. Patient is comfortable this plan and she is given return instructions. Discharge Plan Triage Chief Complaint: General Illness ED Provider: Nan Vidales Dx/Rx/DC Orders Clinical Impression: Diverticulitis, Abscess of sigmoid colon due to diverticulitis Instructions: ED Diverticulitis Prescriptions: New ciprofloxacin HCl [Cipro] 500 mg tablet 500 mg PO BID Qty: 20 RF: 0 metronidazole 500 mg tablet 500 mg PO Q8H 14 Days Qty: 42 RF: 0 No Action diazepam 10 mg tablet 10 mg PO X1 PRN (Reason: Anxiety) RF: 0 Florajen Acidophilus 20 billion cell capsule See Rx Instructions .ROUTE .COMPLEX RF: 0 Primary Care Provider: Elliott Porter Referrals: Elliott Porter MD [Primary Care Provider] - Activity Restrictions/Additional Instructions: Follow-up with Dr Donahue in 5-7 days. Disposition Disposition: Home, Self Care
--- NOTE | 2021-05-15 17:46 | EKG12_ITS ---
Test Reason : CP Blood Pressure : / mmHG Vent. Rate : 098 BPM Atrial Rate : 098 BPM P-R Int : 126 ms QRS Dur : 092 ms QT Int : 368 ms P-R-T Axes : 074 067 058 degrees QTc Int : 469 ms Normal sinus rhythm Biatrial enlargement Abnormal ECG Confirmed by ELIZABETH SUAZO, TIMI ([id number]), editorial clerk MICHELLE SEGURA ([id number]) on 05/17/2021 9:14:18 AM Referred By: LADI/ALISE Confirmed By:TIMI JOHNSON MD
[2021-05-15] MEDS: Ondansetron 4 MG/2 ML Vial IV (17:59)
[2021-05-15] MEDS: 0.9% Normal Saline 1,000 ML 150 ML IV (17:59)
[2021-05-15 18:01] LABS: Bacteria 0 SEEN /hpf (None Seen); Mucous, Urine 0 SEEN /hpf (<or=2+); Squamous Epithelial Cells - UA 0 SEEN /hpf (5-10)
[2021-05-15 18:07] LABS: Absolute Lymphocyte Count 2.22 X10^3/uL (0.83-4.51); Absolute Neutrophil Count 3.3 X10^3/uL (2.0-7.7); Basophil# 0.04 X10^3/uL; Basophil% 0.6 % (0-1); Eosinophil# 0.23 X10^3/uL; Eosinophils% 3.5 % (0-5); Hematocrit 38.4 % (37-47); Hemoglobin 12.1 g/dL (12.0-15.0); Lymphocyte # 2.22 X10^3/ul (0.83-4.51); Lymphocyte % 33.9 % (19-41); Mean Corp Hgb Conc 31.5 g/dL (32-36); Mean Corpuscular Hgb 28.5 pg (27.0-32.0); Mean Corpuscular Volume 90.6 fL (81-99); Mean Platelet Vol. 10.6 fl (6.2-12.0); Monocyte# 0.75 X10^3/uL; Monocyte% 11.5 % (0-10); NRBC Flagged by Analyzer 0 % (0-5); Neutrophil # 3.29 X10^3/uL (2.7-7.7); Neutrophil % 50.3 % (47-70); Platelet Count 323 K/mm3 (150-450); RBC Distribution Width CV 14.5 % (11.6-14.6); RBC Distribution Width SD 47.6 fl (35.1-43.9); Red Blood Count 4.24 M/mm3 (4.2-5.4); White Blood Count 6.5 K/mm3 (4.4-11.0)
[2021-05-15 18:12] LABS: Color, Urine Yellow (Yellow); Glucose, Dipstick Normal (Normal); Ketone-Dipstick Negative (Negative); Leukocyte Esterase-Dipstick Negative /ul (Negative); Nitrite-Dipstick Negative (Negative); Occult Blood-Urine 150 /ul (Negative); Protein-Dipstick 15 mg/dl (Negative); Urine Bilirubin Dipstick Negative (Negative); Urine Clarity Clear (Clear); Urine Urobilinogen 1 mg/dl (Normal)
[2021-05-15 18:22] LABS: Red Blood Cells-Urine 10-25 SEEN /hpf (0-5)
[2021-05-15 18:23] LABS: Amorphous Sediment 1+; White Blood Cells 0-5 SEEN /hpf (0-5)
[2021-05-15 18:27] LABS: AST(SGOT) 15 U/L (15-37); Alanine Aminotransfer ALT/SGPT 16 U/L (13-56); Albumin, Serum 3.3 g/dL (3.2-5.0); Alkaline Phosphatase 117 U/L (45-117); Anion Gap 4 (5-15); BUN 17 mg/dL (7-18); BUN/Creat Ratio 31.9 RATIO (10-20); Calcium,Total 8.9 mg/dL (8.5-10.1); Chloride 105 mmol/L (98-107); Creatinine, Serum 0.53 mg/dL (0.55-1.02); EST Glomerular Filtration Rate 123 mL/min (>60); Est Glom Filt Rate - Afr Amer 149 mL/min (>60); Estimated Creatinine Clearance 89.47 ml/min; Globulin 4.6 g/dL (2.2-4.2); Glucose 94 mg/dL (74-106); Lipase 117 U/L (73-393); Potassium 3.6 mmol/L (3.5-5.1); Protein, Total 7.9 g/dL (6.4-8.2); Sodium Level 139 mmol/L (136-145); Troponin-I HS 5 pg/mL (3.0-54.0)
[2021-05-15] MEDS: Morphine 2 MG/ML Syringe IV ×2 (18:27→21:44)
[2021-05-15 21:43] VITALS: BP 144/69; PULSE 77; RESP 16; O2SAT 100
[2021-05-15 22:37] VITALS: BP 127/78; PULSE 75; RESP 18; O2SAT 99
== END 2021-05-15 22:38 | disposition home or self-care (01) ==
PROVIDERS: Emergency Provider Emergency Medicine; PCP Family Medicine
DX: K57.20 Diverticulitis of large intestine with perforation and abscess without bleeding (principal); J44.9 Chronic obstructive pulmonary disease, unspecified; I10 Essential (primary) hypertension; F17.210 Nicotine dependence, cigarettes, uncomplicated; Z86.73 Personal history of transient ischemic attack (TIA), and cerebral infarction without residual deficits; Z79.899 Other long term (current) drug therapy
CPT/HCPCS: 36415; 74177; 80048; 80076; 81001; 83690; 84484; 85025; 87040; 93005; 96361; 96365; 96375; 96376; 99283; J7030; Q9967; A4216; J2405

== ENCOUNTER 2021-11-30 11:36 | Outpatient (CLI) | payer MEDICARE, MEDICAID, SELFPAY ==
--- NOTE | 2021-11-30 11:42 | CT_ITS ---
STUDY: CT ABDOMEN AND PELVIS WITH CONTRAST ENHANCEMENT OF 1413 HOURS ON 11/30/2021 REASON FOR EXAM: 61-year-old female with left lower quadrant pain. RADIATION DOSAGE (If Supplied By Facility): CTDIvol = ( 14.13 ) mGy, DLP = ( 411.00 ) mGycm TECHNIQUE: Transaxial images were obtained from the dome of the diaphragm to the symphysis pubis without oral contrast. Oral and amp; IV Gastrografin and amp; 100mL Isovue-300 was administered. Sagittal and coronal images were reconstructed. Individualized dose optimization techniques were used for this CT. COMPARISON: 05/15/2021. FINDINGS: The visualized lung bases are unremarkable. The visualized portions of the heart are within normal limits. Normal liver. Contracted gallbladder without gallstones. Normal spleen. Normal pancreas. No pancreatitis or pancreatic mass lesions. Normal bilateral adrenal glands. 2.0 cm diameter simple cyst in the posterior mid body of the right kidney. 1.1 cm diameter simple cyst in the medial inferior pole of the right kidney. No other renal cystic or solid mass lesions. No obstructive uropathy. Normal visualized stomach. Normal small intestine. Mild constipation. Findings may be indicative of a very early sigmoid colonic diverticulitis. No abscess formation. No evidence of a colitis or intestinal obstruction. The appendix is not visualized. No abscesses or fluid collections in the appendix region. Normal abdominal aorta. Normal inferior vena cava. Normal retroperitoneum. Absent uterus. No ovarian cystic or solid mass lesions. Normal urinary bladder. Normal abdominal wall. Normal osseous structures. No lumbar vertebral body fractures, subluxations, or intervertebral disc space narrowing. Normal hips and pelvic bones. CT/Abdomen/Pelvis WITH Contrast IMPRESSION: 1. Findings that may be indicative of a very early sigmoid colonic diverticulitis. No abscess formation. 2. No evidence of a colitis or intestinal obstruction. 3. Mild constipation. 4. Appendix is not visualized. No abscesses or fluid collections in the appendix region. 5. No ovarian cystic solid mass lesions. 6. No obstructive uropathy. Presence of 2 right renal cyst. 7. No pancreatitis or pancreatic mass lesions. 8. Contracted gallbladder without gallstones. 3. No evidence of other abnormalities. Electronically Signed: Bola Marie MD at 19:42 EDT ,
[2021-11-30 14:11] LABS: CREATININE FINGERSTICK < 0.6 mg/dL (0.55-1.02); EGFR FINGERSTICK > 60.0000 mL/min (>60)
== END 2021-11-30 23:59 | disposition home or self-care (01) ==
PROVIDERS: PCP Family Medicine; Visit Provider Surgery
DX: K57.30 Diverticulosis of large intestine without perforation or abscess without bleeding (principal)
CPT/HCPCS: 74177; Q9967

== ENCOUNTER 2021-12-18 12:21 | Outpatient (CLI) | payer MEDICARE, SELFPAY ==
[2021-12-18 15:29] LABS: Erythrocyte Sedimentation Rate 12 mm/hr (0-30)
[2021-12-18 15:31] LABS: Absolute Lymphocyte Count 2.08 X10^3/uL (0.83-4.51); Absolute Neutrophil Count 4.5 X10^3/uL (2.0-7.7); Basophil# 0.05 X10^3/uL; Basophil% 0.7 % (0-1); Eosinophil# 0.27 X10^3/uL; Eosinophils% 3.6 % (0-5); Hematocrit 41.8 % (37-47); Hemoglobin 13.9 g/dL (12.0-15.0); Lymphocyte # 2.08 X10^3/ul (0.83-4.51); Lymphocyte % 27.5 % (19-41); Mean Corp Hgb Conc 33.3 g/dL (32-36); Mean Corpuscular Hgb 32.1 pg (27.0-32.0); Mean Corpuscular Volume 96.5 fL (81-99); Mean Platelet Vol. 11.4 fl (6.2-12.0); Monocyte# 0.65 X10^3/uL; Monocyte% 8.6 % (0-10); NRBC Flagged by Analyzer 0 % (0-5); Neutrophil # 4.48 X10^3/uL (2.7-7.7); Neutrophil % 59.3 % (47-70); Platelet Count 287 K/mm3 (150-450); RBC Distribution Width CV 12.4 % (11.6-14.6); RBC Distribution Width SD 44.3 fl (35.1-43.9); Red Blood Count 4.33 M/mm3 (4.2-5.4); White Blood Count 7.6 K/mm3 (4.4-11.0)
[2021-12-18 16:03] LABS: ALB/GLOB Ratio 1.1 RATIO (0.9-2.4); AST(SGOT) 16 U/L (15-37); Alanine Aminotransfer ALT/SGPT 20 U/L (13-56); Alkaline Phosphatase 104 U/L (45-117); Anion Gap 4 (5-15); BUN 12 mg/dL (7-18); BUN/Creat Ratio 21.8 RATIO (10-20); CRP < 2.90 mg/L (0.0-3.0); Calcium,Total 8.9 mg/dL (8.5-10.1); Chloride 107 mmol/L (98-107); Creatinine, Serum 0.55 mg/dL (0.55-1.02); EST Glomerular Filtration Rate 118 mL/min (>60); Est Glom Filt Rate - Afr Amer 143 mL/min (>60); Globulin 3.6 g/dL (2.2-4.2); Glucose 98 mg/dL (74-106); Potassium 4.3 mmol/L (3.5-5.1); Protein, Total 7.6 g/dL (6.4-8.2); Sodium Level 140 mmol/L (136-145)
== END 2021-12-18 23:59 | disposition home or self-care (01) ==
LOC: BIMLAB 12:22
PROVIDERS: PCP Internal Medicine; Referring Provider Internal Medicine; Visit Provider Internal Medicine
DX: R73.03 Prediabetes (principal); K57.32 Diverticulitis of large intestine without perforation or abscess without bleeding; K57.20 Diverticulitis of large intestine with perforation and abscess without bleeding; K57.92 Diverticulitis of intestine, part unspecified, without perforation or abscess without bleeding
CPT/HCPCS: 36415; 80053; 85025; 85652; 86140

== ENCOUNTER 2022-04-17 08:43 | Day surgery (SDC) | payer MEDICARE, MEDICAID, SELFPAY ==
[2022-04-17] VITALS (7 sets, daily range): BP systolic 111–130; BP diastolic 71–89; PULSE 61–74; RESP 16–20; TEMP 35.9–36.2; O2SAT 97–99; BMI 21.4
--- NOTE | 2022-04-17 09:37 | PCM.HP.BLA ---
History and Physical Date of Admission: 04/17/22 Date of Service:? 04/03/22 MR#: [id number] Acct: [id number] Name:ROBBIE GOODWIN Rep #: [id number] : 1960 ? ? Provider: Dr. Angelica Barillas MD Age/Sex:? 61/F ? ? Location: [facility] Status: Signed Intake Vital Signs ? 04/03/2215:10 Height 5 ft 7 in Weight: 142 lb BMI 22.2 BP 135/88 H Blood Pressure Location Rt brachial Position Sitting Respiration 16 Pulse 88 Pulse Source Monitor Temp 97.6 F L Temp Source Temporal Pulse Oximetry (%) 98 Oxygen Delivery Method room air Intake Visit Reasons:?Upper/Lower Scope Chief Complaint: Upper/lower scope Inventory Planner Required: No Is patient in pain?: Yes (abdominal pain) Pain scale (1-10): 3 Allergies codeine Allergy (Verified 04/03/22 15:12) nausea, hypotensivefentanyl Adverse Reaction (Verified 04/03/22 15:12) Nausea, hypotensive Medications diazepam 10 mg tablet 10 mg PO X1 PRN Anxiety 05/15/21 [History Confirmed 04/03/22] PFSH Medical History? Anxiety Arthritis Carpal tunnel syndrome Chest pain Chronic pain COPD (chronic obstructive pulmonary disease) Diverticulitis Hemochromatosis Hepatitis Hypertension IBS (irritable bowel syndrome) Sciatica Smoker TIA (transient ischemic attack) Surgical History? History of hysterectomy Family History? Mother Myocardial infarctionOther Alcoholism Arthritis Breast cancer Cancer Diabetes Hypertension Social History? Smoking Status:? Current every day smoker tobacco type: cigarettes Tobacco: How many years used:? 50 alcohol intake:? never substance use type:? does not use HPI HPI HPI: ROBBIE DE LA PAZ, is a 61 F who presents to the office today for endoscopy.? Patient had previously been [facility] to [facility] due to diverticulitis with abscess in March 2021 drain placement was attempted however the cavity was too small.? Patient saw Dr. Crump and he recommended colonoscopy.? Patient did not follow-up with him, did follow-up with Dr. Uribe?ultimately never did get the colonoscopy completed.? Patient complains of epigastric discomfort and bloating denies any nausea or vomiting states she does try to eat small meals.? Patient is on any reflux medication.? Patient states she has bowel moods daily did denies any blood states they are soft.? Patient's last colonoscopy was in 2014 showed diverticulosis was at [facility]. ROS General General: Yes weight change and fatigue; No appetite, colon cancer or breast cancer HEENT HEENT: No difficulty swallowing, eye injury, eye surgery, swollen glands or hoarseness Endo Endocrine: No thyroid disease, diabetes mellitus, thyroid cancer, Hair loss, heat intolerance or cold intolerance Skin Skin: No rash or changing moles Musc Musculoskeletal: No back problems, arthritis, rheumatoid arthritis, gout or joint pain Cardio Cardiovascular: No murmur, pacemaker, heart disease, atrial fibrillation, high blood pressure, heart attack, heart stent, palpitations, shortness of breat with exertion or chest pain Psych Psychiatric: No depression, anxiety or hearing voices Resp Respiratory: No shortness of breath, No sleep apnea, No cough, No COPD, No asthma, No emphysema and No wheezing Gastro Gastrointestinal: Yes abdominal pain, No nausea or vomiting, No diarrhea, No constipation, No blood in stool, No acid reflux, No hemorrhoids, No ulcers, No gallbladder problem and No black,tarry stools Rafa Hematologic: No blood thinners, No blood disorders, No bleeding, No anemia and No blood clots Neuro Neurologic: No confusion and No convulsions Exam Const General: cooperative, healthy appearing and no acute distress [facility] Head: normal to inspection Resp Effort & Inspection: normal respiratory effort Cardio Rate: regular rate GI Inspection: non-distended Palpation: soft, no guarding, no hernias and tender (Epigastric and left abdomen, no guarding) with no rebound tenderness Skin General: no rashes or lesions noted Neuro General: patient oriented x3 Extrem General: no clubbing, cyanosis or edema Psych Affect: normal affect COVID (Procedure Consent) Procedure Criteria Procedure Criteria: Yes Elective The surgeon/proceduralist and patient have discussed in detail the risk of exposure to and/or potential harm posed by the COVID-19 virus with having a surgery/procedure at this time versus the risk of? delaying the surgery/procedure. It is not possible to know either the risk of delaying the surgery or procedure or chance of getting an infection with perfect accuracy, but a joint decision was made between the patient and the surgeon/proceduralist ?to proceed at this time with the scheduled surgery/procedure as indicated on the consent form. Assessment and Plan Assessment and Plan (1) Epigastric pain: ?Status:?Acute (2) Left sided abdominal pain: ?Status:?Acute (3) Bloating: ?Status:?Acute Plan I have discussed the above with the patient. I have offered the patient EGD and colonoscopy for evaluation. I have explained the risks/benefits of the procedure and described the procedure.? I have discussed the risks with the patient, including but not limited to:? infection, bleeding, perforation of the GI tract requiring emergency surgery, inability to complete the procedure, injury to any internal organs, complications of anesthesia, etc. - the patient understands and agrees to proceed. I have answered all the patient's questions to the patient's satisfaction and the patient has no further questions. The patient has been given instructions for the colon cleansing preparation.? 1 day of clears, MiraLAX Dulcolax split prep. Angelica Barillas M.D. Pager: [phone] [facility] [address] [place] [address], [address] [place] [address] Office: [phone] Coding Level of Care Code Off vis,new,level 3 Diagnoses Epigastric pain? R10.13 Left sided abdominal pain? R10.9 Bloating? R14.0 04/05/22 1235 <Electronically signed by Angelica Barillas MD> Date Angelica Barillas MD
--- NOTE | 2022-04-17 10:15 | COLBX_PTH ---
PATIENT: ROBBIE DE LA PAZ LOC: EN U#:[id number] AGE/SX: 61/F ROOM: RE04/17/[address]: Dr. Angelica Barillas MD : 1960 BED: DIS: 04/17/2022 SPEC #: [id number] RECD: 04/17/22 11:04 STATUS: CHRISTINA TERRY #: [id number] BOLIVAR: 04/17/22 10:[address]: Angelica Barillas DEPT: SURGICAL PATHOLOGY RECD BY: Alfredo Campbell ENTERED: 04/17/22 11:44 SP TYPE: COLON BX OTHR DR: Dr. Elliott Porter MD Tissues: A - Pylorus B - Gastric mucous membrane C - Descending colon Procedures: Special Stain Group II Surgery Specimen Level IV Alcian Blue/PAS (control) HEADER OPERATION: Colonoscopy, EGD ([facility]) with biopsies PRE-OP DIAGNOSIS: Epigastric pain, left-sided abdominal pain, bloating TISSUE SUBMITTED: A ? Pre-pyloric biopsy for H. pylori and path, B ? GE junction biopsy, C ? Biopsy of descending colon polyp MICROSCOPIC DIAGNOSIS A. Pre-pyloric biopsy: Mild gastritis. See microscopic description and comment. B. GE junction, biopsy: A fragment of gastroesophageal mucosa with mild to moderate chronic inflammation. Intestinal metaplasia (goblet cell metaplasia) not identified. See comment. C. Descending colon polyp, biopsy: A fragment of colonic mucosa, no pathologic diagnosis. See comment. SJ:karin 04/18/2022 COMMENT A. The results of immunohistochemistry for Helicobacter pylori will be reported separately ([id number]). B. Alcian blue/PAS stain with matched control is used in the evaluation of the specimen. C. Hyperplastic or adenomatous changes are not identified. MICROSCOPIC DESCRIPTION Slides are reviewed. A. The specimen shows fragments of gastric mucosa with chronic inflammatory cell infiltrates in the lamina propria consisting of lymphocytes and plasma cells, consistent with mild chronic gastritis. GROSS DESCRIPTION A - Received in fixative is one container labeled with the patient's name and designated pre-pyloric biopsy. The specimen consists of one irregular fragment of light dominguez soft tissue that measures 0.4 x 0.4 x 0.1 cm. The specimen is totally submitted in one cassette. B - Received in fixative is one container labeled with the patient's name and designated GE junction biopsy. The specimen consists of one irregular fragment of light dominguez soft tissue that measures 0.3 x 0.3 x 0.1 cm. The specimen is totally submitted in one cassette. C - Received in fixative is one container labeled with the patient's name and designated biopsy of descending colon polyp. The specimen consists of one irregular fragment of light dominguez soft tissue that measures 0.3 x 0.3 x 0.1 cm. The specimen is totally submitted in one cassette. / SJ:rg 04/17/2022 TC:3 CPT: 56239 x3, 92986
--- NOTE | 2022-04-17 10:15 | IMM_PTH ---
PATIENT: ROBBIE DE LA PAZ LOC: EN U#:[id number] AGE/SX: 61/F ROOM: RE04/17/[address]: Dr. Angelica Barillas MD : 1960 BED: DIS: 04/17/2022 SPEC #: [id number] RECD: 04/17/22 11:41 STATUS: CHRISTINA REQ #: [id number] BOLIVAR: 04/17/22 10:[address]: Angelica Barillas DEPT: IMMUNOHISTOCHEMISTRY RECD BY: Madyson Gordon ENTERED: 04/17/22 11:42 SP TYPE: IMMUNO OTHR DR: Dr. Elliott Porter MD Tissues: A - Pyloric antrum Procedures: H Pylori (initial) PHYSICIAN & INSTITUTION [place] [id number] SPECIMEN INFORMATION: Tissue Source: A ? Pre-pyloric biopsy Clinical Info: Epigastric pain, left-sided abdominal pain, bloating Specimen Number: [id number] CPT code: 76811 METHODOLOGY: Deparaffinized sections of prefer/formalin-fixed tissue or PAP/DQ stained slides are incubated with monoclonal/polyclonal antibodies/oligonucleotide probes. Localization is made via biotin free immunoperoxidase method. Appropriate controls are performed and reacted as expected. Results on target cell population are indicated in the following table: RESULTS: ANTIBODY / CLONE RESULT Block A H Pylori (polyclonal) negative These tests were developed and their performance characteristics determined by [facility]. They may not have been cleared or approved by the U.S. Food and Drug Administration. The FDA has determined that such clearance or approval is not necessary. The above immunohistochemical/dualISH markers are ordered and reviewed by the Pathologist. INTERPRETATION: A. Pre-pyloric biopsy: Negative for Helicobacter pylori organisms. SJ:karin 04/18/2022
--- NOTE | 2022-04-17 10:57 | OP.EGD_ITS ---
Patient Name: Yari Trivedi Procedure Date: 04/17/2022 10:10 AM Date of : 1960 Age: 61 Procedure: Upper GI endoscopy Indications: Epigastric abdominal pain, Abdominal pain in the left upper quadrant, Abdominal bloating Providers: Angelica Barillas MD Medicines: Monitored Anesthesia Care Patient Profile: This is a 61 year old female. Complications: No immediate complications. Procedure: Pre-Anesthesia Assessment: - Prior to the procedure, a History and Physical was performed, and patient medications and allergies were reviewed. The patient's tolerance of previous anesthesia was also reviewed. The risks and benefits of the procedure and the sedation options and risks were discussed with the patient. All questions were answered, and informed consent was obtained. Prior Anticoagulants: The patient has taken no previous anticoagulant or antiplatelet agents. ASA Grade Assessment: Per anesthesia. After reviewing the risks and benefits, the patient was deemed in satisfactory condition to undergo the procedure. After obtaining informed consent, the endoscope was passed under direct vision. Throughout the procedure, the patient's blood pressure, pulse, and oxygen saturations were monitored continuously. The colonoscope was introduced through the mouth, and advanced to the second part of duodenum. The upper GI endoscopy was accomplished without difficulty. The patient tolerated the procedure well. Scope In: 10:20:17 AM Scope Out: 10:28:09 AM Total Procedure Duration Time 0 hours 7 minutes 52 seconds Findings: The Z-line was irregular and was found 33 cm from the incisors. Biopsies were taken with a cold forceps for histology. Diffuse moderate inflammation characterized by adherent blood and erythema was found in the prepyloric region of the stomach. Biopsies were taken with a cold forceps for histology. Biopsies were taken with a cold forceps for Helicobacter pylori cultures. The examined duodenum was normal. The cardia and gastric fundus were normal on retroflexion. Impression: - Z-line irregular, 33 cm from the incisors. Biopsied. - Gastritis. Biopsied. - Normal examined duodenum. Recommendation: - Await pathology results. - Discharge patient to home. - Resume previous diet. - Continue present medications. - Use Protonix (pantoprazole) 40 mg PO daily. - Use sucralfate tablets 1 gram PO QID for 2 weeks. Procedure Code(s): --- Professional --- 24026, Esophagogastroduodenoscopy, flexible, transoral; with biopsy, single or multiple Diagnosis Code(s): --- Professional --- K22.8, Other specified diseases of esophagus K29.70, Gastritis, unspecified, without bleeding R10.13, Epigastric pain R10.12, Left upper quadrant pain R14.0, Abdominal distension (gaseous) CPT copyright 2017 [employer]. All rights reserved. The codes documented in this report are preliminary and upon fulfillment specialist review may be revised to meet current compliance requirements. MD Angelica Arias MD 04/17/2022 10:57:07 AM This report has been signed electronically. Number of Addenda: 0 Note Initiated On: 04/17/2022 10:10 AM
--- NOTE | 2022-04-17 10:58 | OP.CCLET_ITS ---
04/17/2022 Maryanne Ross [facility] [address] [place] [address] Re : Upper GI endoscopy procedure for Yari Trivedi Dear Dr. Ross This procedure was performed on Sunday, April 17, 2022. My impressions and recommendations are as follows: Impressions : - Z-line irregular, 33 cm from the incisors. Biopsied. - Gastritis. Biopsied. - Normal examined duodenum. Recommendations : - Await pathology results. - Discharge patient to home. - Resume previous diet. - Continue present medications. - Use Protonix (pantoprazole) 40 mg PO daily. - Use sucralfate tablets 1 gram PO QID for 2 weeks. My findings are described in the full procedure note, which is enclosed. If I can be of further assistance, please feel free to contact me at Doctor phone number(s): , Work: . Sincerely, MD Angelica Arias MD 04/17/2022 10:57:07 AM This report has been signed electronically.
--- NOTE | 2022-04-17 11:04 | OP.COLON_ITS ---
Patient Name: Yari Trivedi Procedure Date: 04/17/2022 10:28 AM Date of : 1960 Age: 61 Procedure: Colonoscopy Indications: Follow-up of diverticulitis Providers: Angelica Barillas MD Medicines: Monitored Anesthesia Care Patient Profile: This is a 61 year old female. This is a 61 year old female. Last Colonoscopy: 2014. Complications: No immediate complications. Procedure: Pre-Anesthesia Assessment: - Prior to the procedure, a History and Physical was performed, and patient medications and allergies were reviewed. The patient's tolerance of previous anesthesia was also reviewed. The risks and benefits of the procedure and the sedation options and risks were discussed with the patient. All questions were answered, and informed consent was obtained. Prior Anticoagulants: The patient has taken no previous anticoagulant or antiplatelet agents. ASA Grade Assessment: Per anesthesia. After reviewing the risks and benefits, the patient was deemed in satisfactory condition to undergo the procedure. After I obtained informed consent, the scope was passed under direct vision. Throughout the procedure, the patient's blood pressure, pulse, and oxygen saturations were monitored continuously. The colonoscope was introduced through the anus and advanced to the cecum, identified by the appendiceal orifice, ileocecal valve and palpation. The colonoscopy was technically difficult and complex due to a tortuous colon. The patient tolerated the procedure well. The quality of the bowel preparation was good. Scope In: 10:29:04 AM Scope Withdrawal Time 0 hours 9 minutes 28 seconds Scope Out: 10:51:11 AM Total Procedure Duration Time 0 hours 22 minutes 7 seconds Findings: Hemorrhoids were found on perianal exam. A less than 5 mm polyp was found in the descending colon. The polyp was sessile. The polyp was removed with a cold biopsy forceps. Resection and retrieval were complete. A few small-mouthed diverticula were found in the sigmoid colon, descending colon and transverse colon. The exam was otherwise without abnormality. Impression: - Hemorrhoids found on perianal exam. - One less than 5 mm polyp in the descending colon, removed with a cold biopsy forceps. Resected and retrieved. - Diverticulosis in the sigmoid colon, in the descending colon and in the transverse colon. - The examination was otherwise normal. Recommendation: - Discharge patient to home. - High fiber diet. - Continue present medications. - Await pathology results. - Repeat colonoscopy in 5-10 years for surveillance based on pathology results. Procedure Code(s): --- Professional --- 16635, Colonoscopy, flexible; with biopsy, single or multiple Diagnosis Code(s): --- Professional --- K64.9, Unspecified hemorrhoids D12.4, Benign neoplasm of descending colon K57.32, Diverticulitis of large intestine without perforation or abscess without bleeding K57.30, Diverticulosis of large intestine without perforation or abscess without bleeding CPT copyright 2017 [employer]. All rights reserved. The codes documented in this report are preliminary and upon spectacle truer review may be revised to meet current compliance requirements. MD Angelica Arias MD 04/17/2022 11:03:51 AM This report has been signed electronically. Number of Addenda: 0 Note Initiated On: 04/17/2022 10:28 AM
--- NOTE | 2022-04-17 11:06 | OP.CCLET_ITS ---
04/17/2022 Maryanne Ross [facility] [address] [place] [address] Re : Colonoscopy procedure for Yari Trivedi Dear Dr. Ross This procedure was performed on Sunday, April 17, 2022. My impressions and recommendations are as follows: Impressions : - Hemorrhoids found on perianal exam. - One less than 5 mm polyp in the descending colon, removed with a cold biopsy forceps. Resected and retrieved. - Diverticulosis in the sigmoid colon, in the descending colon and in the transverse colon. - The examination was otherwise normal. Recommendations : - Discharge patient to home. - High fiber diet. - Continue present medications. - Await pathology results. - Repeat colonoscopy in 5-10 years for surveillance based on pathology results. My findings are described in the full procedure note, which is enclosed. If I can be of further assistance, please feel free to contact me at Doctor phone number(s): , Work: . Sincerely, MD Angelica Arias MD 04/17/2022 11:03:51 AM This report has been signed electronically.
== END 2022-04-17 12:00 | disposition home or self-care (01) ==
LOC: EN 08:45 → AC 08:46
PROVIDERS: PCP Family Medicine; Referring Provider Family Medicine; Visit Provider Surgery
PROC: 0DJD8ZZ Inspection of Lower Intestinal Tract, Via Natural or Artificial Opening Endoscopic (ICD-10-PCS; CPT 45378; principal; 2022-04-17 10:10)
DX: K29.50 Unspecified chronic gastritis without bleeding (principal); K22.89 Other specified disease of esophagus; Q43.8 Other specified congenital malformations of intestine; K64.9 Unspecified hemorrhoids; K63.5 Polyp of colon; F17.210 Nicotine dependence, cigarettes, uncomplicated; F41.9 Anxiety disorder, unspecified; Z86.73 Personal history of transient ischemic attack (TIA), and cerebral infarction without residual deficits; Z79.899 Other long term (current) drug therapy
CPT/HCPCS: 45380; 43239; 88305; 88313; 88342; J7120; J1610; J2405

== ENCOUNTER 2022-07-01 12:19 | Emergency (ER) | payer MEDICARE, MEDICAID, SELFPAY ==
[2022-07-01 12:20] VITALS: BP 162/112; PULSE 86; RESP 16; TEMP 36.6; O2SAT 99; BMI 23.1
--- NOTE | 2022-07-01 12:28 | EX.ED.DYSGE1 ---
HPI History of Present Illness Chief Complaint: Chest Pain Narrative Narrative: 62-year-old female here with chest pain. History of COPD, IBS, hypertension, TIA, tobacco abuse. States pain started approximately 4 and half hours prior to arrival. Its been constant, severe, not exertional, nonpleuritic. Pain is sharp, located left-sided chest is nonradiating the patient denies recent surgery in the last 4 weeks or immobilization in the last 3 days, denies previous diagnosis of DVT or PE, hemoptysis, unilateral leg swelling or malignancy with treatment the last 6 months. No estrogen use noted. Patient denies sudden onset of pain, no tearing sensation, no migratory symptoms, no new numbness, weakness or loss of sensation. Patient denies family history or personal history of Marfan syndrome or Caio-Danlos Old chart reviewed: [facility] Medical History Anxiety Arthritis Carpal tunnel syndrome Chest pain Chronic pain COPD (chronic obstructive pulmonary disease) Diverticulitis Hemochromatosis Hepatitis History of edema Hypertension IBS (irritable bowel syndrome) Sciatica Shortness of breath on exertion Smoker TIA (transient ischemic attack) Wears glasses Home Medications diazepam 10 mg tablet 10 mg PO X1 PRN Anxiety 05/15/21 [History Last Taken Unknown] sucralfate 1 gram tablet See Rx Instructions .Route .COMPLEX #56 tabs 06/17/22 [Rx Last Taken Unknown] Allergy/AdvReac Type Severity Reaction Status Date / Time codeine Allergy nausea, Verified 07/01/22 12:23 hypotensive fentanyl AdvReac Nausea, Verified 07/01/22 12:23 hypotensive Family History Mother Myocardial infarction Other Alcoholism Arthritis Breast cancer Cancer Diabetes Hypertension Surgical History History of hysterectomy Social History Smoking Status: Light Smoker (<10/day) Tobacco: How many years used: 50 alcohol intake: never substance use type: does not use ROS ROS ED ROS Narrative Constitutional: Denies fever HEENT: Denies sore throat Neck: Denies neck pain Cardiovascular: Positive for chest pain Respiratory: Denies shortness of breath GI: Denies nausea vomiting or abdominal pain : Denies changes in urinary habits Musculoskeletal: Denies muscle or joint pain Neurologic: Denies numbness weakness or loss of sensation Skin denies rash EXAM Physical Exam Narrative Exam Narrative: Nursing triage notes reviewed, Vital signs reviewed Constitutional: please see mdm HENT: MMM Eyes: Pupils equal round and reactive to light, Extraocular muscles intact Neck: No stridor, no JVD, full neck ROM Lungs: Clear to auscultation, No wheezing or rales. No increased work of breathing, no conversational dyspnea, no accessory muscle use, no nasal flaring. No respiratory distress noted Heart: Regular rate and rhythm, No murmurs, No rubs and No gallops, 2+ distal pulses (radial, femoral, posterior tibial) in all extremities Abdomen: Soft, there is no tenderness, rigidity, rebound or guarding, no obvious peritoneal signs, no palpable pulsatile abdominal masses, no auscultated abdominal bruit : No CVAT Extremities: No edema Neuro: No focal neurological deficits, cranial nerves II through XII intact, 5/5 strength in all extremities. Intact sensation to light touch in all extremities, 2+ reflexes bilateral patella dens. Normal gait. No ataxia. Skin: No rash or lesions noted Const Vital Signs: 07/01/22 12:20 07/01/22 12:27 07/01/22 13:21 Temperature 97.8 F Temperature Source Oral Pulse Rate 86 78 Respiratory Rate 16 17 Respiratory Effort Normal Respiratory Pattern Normal Blood Pressure 162/112 H 151/90 H Blood Pressure Mean 128 110 Pulse Ox 99 97 Oxygen Delivery Method Room Air Room Air 07/01/22 14:08 Temperature Temperature Source Pulse Rate 70 Respiratory Rate 12 Respiratory Effort Respiratory Pattern Blood Pressure 138/88 H Blood Pressure Mean 104 Pulse Ox 98 Oxygen Delivery Method Room Air [facility] [place] Narrative Medical decision making narrative: 62-year-old female here with left-sided chest pain. Patient was hemodynamically stable, afebrile, nontoxic-appearing. Low clinical suspicion for PE or dissection based on history and physical exam. Initial EKG without evidence of STEMI. Obtained additional labs to rule out myocardial schema, anemia or electrolyte abnormalities. Labs unremarkable. Patient has a low risk heart score. No indication for admission at this time will instruct to follow-up with primary care physician for outpatient confirmatory testing in the form of stress test. I completed a HEART Score to screen for Major Adverse Cardiac Event (MACE) in this patient. The evidence indicates that the patient is very low risk for MACE and this is consistent with my clinical intuition. The risk of further workup or hospitalization for MACE is likely higher than the risk of the patient having a MACE. It is, therefore, in the patient?s best interest not to do additional emergent testing or to be hospitalized for MACE at this time. Shared Decision-Making No hospitalization indicated I have discussed with the patient my clinical impression and the result of the HEART Score to screen for MACE, as well as the risks of further testing and hospitalization. The HEART Score shows that the risk for MACE is less than 1%. Although the risk of MACE has not been completely eliminated, the risks of further testing or hospitalization for MACE likely exceed any potential benefit, and the patient agrees with not pursuing further emergent evaluation or hospitalization for MACE at this time. Lab Data Labs: Laboratory Results - last 24 hr 07/01/22 07/01/22 12:30 12:30 WBC 7.1 RBC 4.22 Hgb 13.4 Hct 39.5 MCV 93.6 MCH 31.8 MCHC 33.9 RDW Std Deviation 43.4 RDW Coeff of Jamee 12.8 Plt Count 318 MPV 11.0 Immature Gran % (Auto) 0.100 Neut % (Auto) 56.4 Lymph % (Auto) 28.2 [place] % (Auto) 9.5 Eos % (Auto) 5.0 Baso % (Auto) 0.8 Absolute Neuts (auto) 4.0 Absolute Lymphs (auto) 2.01 Nucleated RBC % 0 Sodium 141 Potassium 3.6 Chloride 109 H Carbon Dioxide 27.0 Anion Gap 5 BUN 13 Creatinine 0.50 L Estim Creat Clear Calc 110.54 Est GFR (MDRD) Af Amer 158 Est GFR (MDRD) Non-Af 131 BUN/Creatinine Ratio 25.8 H Glucose 94 Calcium 9.2 Troponin I High Sens 4 Radiography Diagnostic Testing: Clinical Impression(s) from Imaging Studies Chest X-Ray 07/01/22 13:00 IMPRESSION: Hyperinflation. The lungs are clear. Electronically Signed: Slava Baird MD at 13:21 EDT , EKG Initial EKG: Comments: EKG with normal sinus rhythm, normal axis, normal intervals, no STEMI Discharge Plan Triage Chief Complaint: Chest Pain ED Provider: Lawrence Garrett Dx/Rx/DC Orders Clinical Impression: Chest pain Instructions: ED Chest Pain, Uncertain Cause Prescriptions: No Action diazepam 10 mg tablet 10 mg PO X1 PRN (Reason: Anxiety) Label Comments: take 1 tablet by mouth if needed (TO LAST 30 DAYS) sucralfate 1 gram tablet See Rx Instructions .ROUTE .COMPLEX Qty: 56 0RF Dose Instruction: take 1 tablet by mouth four times a day 1 hour before meals and at bedtime Rx Instructions: take 1 tablet by mouth four times a day 1 hour before meals and at bedtime Primary Care Provider: Karen Kovacs NP Referrals: Elliott Porter MD [Non-Staff] - Activity Restrictions/Additional Instructions: Please return Disposition Disposition: Home, Self Care
--- NOTE | 2022-07-01 12:49 | EKG12_ITS ---
Test Reason : CP Blood Pressure : / mmHG Vent. Rate : 085 BPM Atrial Rate : 085 BPM P-R Int : 140 ms QRS Dur : 090 ms QT Int : 378 ms P-R-T Axes : 073 061 052 degrees QTc Int : 449 ms Normal sinus rhythm Possible Left atrial enlargement Borderline ECG When compared with ECG of 15-MAY-2021 16:00, No significant change was found Confirmed by RODRÍGUEZ SUAZO, ANNE ([id number]), editor dictionary MICHELLE SEGURA ([id number]) on 07/05/2022 2:42:52 P M Referred By: Confirmed By:ARIANNA ARREGUIN MD
--- NOTE | 2022-07-01 13:00 | RAD_ITS ---
STUDY: X-RAY CHEST REASON FOR EXAM: Female, 62 years old. Chest pain TECHNIQUE: Single AP portable view of the chest. COMPARISON: Comparison is made with prior study dated 05/24/2020. FINDINGS: EKG electrodes are seen. Hyperinflation. There is no demonstrated pleural abnormality. Normal size heart. Normal mediastinum and nik. Normal visualized pulmonary arteries. There is atherosclerotic calcification of the aortic arch with tortuosity. Normal visualized thoracic spine. Normal visualized ribs, clavicles, and shoulders. There is no demonstrated abnormality of the visualized soft tissue structures of the upper abdomen. RAD/Chest 1 View (Portable) IMPRESSION: Hyperinflation. The lungs are clear. Electronically Signed: Slava Baird MD at 13:21 EDT ,
[2022-07-01] MEDS: Aspirin 81 MG TAB.CHEW 324 MG PO (13:03)
[2022-07-01 13:14] LABS: Absolute Lymphocyte Count 2.01 X10^3/uL (0.83-4.51); Basophil# 0.06 X10^3/uL; Basophil% 0.8 % (0-1); Eosinophil# 0.36 X10^3/uL; Hematocrit 39.5 % (37-47); Hemoglobin 13.4 g/dL (12.0-15.0); Lymphocyte # 2.01 X10^3/ul (0.83-4.51); Lymphocyte % 28.2 % (19-41); Mean Corp Hgb Conc 33.9 g/dL (32-36); Mean Corpuscular Hgb 31.8 pg (27.0-32.0); Mean Corpuscular Volume 93.6 fL (81-99); Monocyte# 0.68 X10^3/uL; Monocyte% 9.5 % (0-10); NRBC Flagged by Analyzer 0 % (0-5); Neutrophil # 4.02 X10^3/uL (2.7-7.7); Neutrophil % 56.4 % (47-70); Platelet Count 318 K/mm3 (150-450); RBC Distribution Width CV 12.8 % (11.6-14.6); RBC Distribution Width SD 43.4 fl (35.1-43.9); Red Blood Count 4.22 M/mm3 (4.2-5.4); White Blood Count 7.1 K/mm3 (4.4-11.0)
[2022-07-01 13:21] VITALS: BP 151/90; PULSE 78; RESP 17; O2SAT 97
[2022-07-01 13:28] LABS: Anion Gap 5 (5-15); BUN 13 mg/dL (7-18); BUN/Creat Ratio 25.8 RATIO (10-20); Calcium,Total 9.2 mg/dL (8.5-10.1); Chloride 109 mmol/L (98-107); EST Glomerular Filtration Rate 131 mL/min (>60); Est Glom Filt Rate - Afr Amer 158 mL/min (>60); Estimated Creatinine Clearance 110.54 ml/min; Glucose 94 mg/dL (74-106); Potassium 3.6 mmol/L (3.5-5.1); Sodium Level 141 mmol/L (136-145); Troponin-I HS 4 pg/mL (3.0-54.0)
[2022-07-01 14:08] VITALS: BP 138/88; PULSE 70; RESP 12; O2SAT 98
[2022-07-01 15:38] VITALS: BP 155/83; PULSE 75; RESP 15; O2SAT 96
== END 2022-07-01 15:58 | disposition home or self-care (01) ==
PROVIDERS: Emergency Provider Emergency Medicine; PCP Nurse Practitioner Family; Visit Provider Emergency Medicine
DX: R07.9 Chest pain, unspecified (principal); J44.9 Chronic obstructive pulmonary disease, unspecified; I10 Essential (primary) hypertension; F17.200 Nicotine dependence, unspecified, uncomplicated
CPT/HCPCS: 71045; 80048; 84484; 85025; 93005; 99284; A4216

== ENCOUNTER 2022-08-04 17:05 | Emergency (ER) | payer MEDICARE, MEDICAID, SELFPAY ==
[2022-08-04 17:07] VITALS: BP 179/95; PULSE 124; RESP 20; TEMP 37.3; O2SAT 99; BMI 22.5
--- NOTE | 2022-08-04 17:35 | EDS_ITS ---
HPI History of Present Illness Chief Complaint: Dizziness Detail of Chief Complaint: Several vague complaints Informant: patient Onset/Context/Timing Onset: Month(s) Context: Gradual Onset Timing: - (Unable to determine) Quality: Pain in both ears, pain anterior neck, muscle aches Location: Predominately head neck Current Severity: Mild Maximum Severity: Severe Worsened by: Nothing Relieved by: Nothing Associated Symptoms Associated Symptoms: Fatigue, lack of energy Narrative Narrative: Patient is a 62-year-old woman who presents with numerous complaints. She has seen ENT. She has been told by ENT there is nothing wrong. She has seen her doctor many times. She informed me he blows me off and tells me his anxiety . Patient denies fever, chills night sweats. Patient denies headache, visual, ocular auditory symptoms. Patient denies trouble swallowing. She does reports slightly deeper voice. She denies weight loss or weight gain. She denies cough or shortness of breath. She denies chest pain. She does report nausea without vomiting or diarrhea. She denies dysuria, frequency or hematuria. She does report urgency. She denies rash. She denies muscle aches or joint aches. She has swelling of her joints. Patient states she has inflammation of the left chest wall after metal implants were placed for breast biopsy. She denies redness, swelling or pain of the right chest wall or breast. Prior similar symptoms: Yes Recent Illness/Hospitalization: No PFSH PFS Medical History Anxiety Arthritis Carpal tunnel syndrome Chest pain Chronic pain COPD (chronic obstructive pulmonary disease) Diverticulitis Hemochromatosis Hepatitis History of edema Hypertension IBS (irritable bowel syndrome) Sciatica Shortness of breath on exertion Smoker TIA (transient ischemic attack) Wears glasses Home Medications diazepam 10 mg tablet 10 mg PO X1 PRN Anxiety 05/15/21 [History Last Taken Unknown] famotidine 10 mg chewable tablet mg PO 07/23/22 [History Last Taken Unknown] Allergy/AdvReac Type Severity Reaction Status Date / Time codeine Allergy nausea, Verified 08/04/22 17:06 hypotensive pantoprazole [From Protonix] AdvReac Intermediate headache Verified 08/04/22 17:06 fentanyl AdvReac Nausea, Verified 08/04/22 17:06 hypotensive Family History Mother Myocardial infarction Other Alcoholism Arthritis Breast cancer Cancer Diabetes Hypertension Surgical History History of hysterectomy Social History (Updated 08/04/22 @ 17:[address] Chavo Veras MD) household members: none Smoking Status: Light Smoker (<10/day) Tobacco: How many years used: 50 alcohol intake: never substance use type: does not use ROS ROS ED Constitutional Constitutional ED: Denies chills, fever(s), subjective, sweats or weight loss Eyes Eyes: Denies blurry vision, change in vision or diplopia ENT ENT ED: Reports ear pain; Denies rhinorrhea or sore throat Cardiovascular Cardiovascular: Denies chest pain, orthopnea, palpitations, paroxysmal nocturnal dyspnea or racing heartbeat Respiratory/Chest Respiratory/Chest: Denies cough, dyspnea, dyspnea on exertion, orthopnea or paroxysmal nocturnal dyspnea Gastrointestinal Gastrointestinal: Denies abdominal pain, diarrhea, nausea or vomiting Genitourinary Genitourinary ED: Denies dysuria, hematuria or urinary frequency Musculoskeletal Musculoskeletal: Denies arthralgias, back pain, myalgias or neck pain Integumentary Denies abscess, Abrasions or rash Neurologic Neurologic: Reports headache(s) and weakness; Denies paresthesias Psychiatric Psychiatric: Denies anxiety Endocrine Endocrinology: Denies cold intolerance or heat intolerance Hematologic/Lymphatic Hematologic/Lymphatic: Reports systems reviewed and no addt'l complaints, except as documented and none; Denies anemia, easy bleeding or easy bruising EXAM Physical Exam Const Vital Signs: 08/04/22 17:07 08/04/22 17:14 08/04/22 17:45 Temperature 99.2 F H Temperature Source Temporal Pulse Rate 124 H 120 H Respiratory Rate 20 H 16 Respiratory Effort Normal Respiratory Pattern Normal Blood Pressure 179/95 H 153/89 H Blood Pressure Mean 123 110 Pulse Ox 99 95 Oxygen Delivery Method Room Air Room Air Positive well nourished and well developed General Appearance ED: well developed and NAD; Negative for cyanotic, diaphoretic or pallor HEENT Reports moist mucous membranes HEENT Narrative: Ears normal. TMs normal. Nares patent. Uvula midline. No deviation retrusion. No erythema to the posterior pharynx. Eyes PERRL and EOMs intact bilaterally General Eye ED: Negative for pale conjunctiva or scleral icterus Neck no lymphadenopathy, supple and no JVD Chest Wall inspection of chest normal and palpation of chest normal Resp normal respiratory effort and clear to auscultation bilaterally Cardio regular rhythm, S1 normal heart sound, S2 normal heart sound and no murmurs Rate: tachycardic GI normal to inspection, nondistended, normoactive bowel sounds, non-tender, non- distended and no masses; Negative for hepatosplenomegaly Palpation: soft Back/Spine no CVA tenderness Thoracic Spine / Upper Back: Negative for thoracic spinal tenderness Lumbar Spine / Lower Back: Negative for lumbar spinal tenderness Neuro oriented x3, CN's II-XII intact bilaterally and no sensory deficits noted Sensorium / Orientation: alert Motor Exam: strength 5/5 throughout Psych Psych Narrative: Patient with a flat affect and depressed mood. Monotone voice. Speaks slowly and softly. Skin no rashes or lesions noted, no wounds and skin turgor normal General Skin Exam: Negative for jaundice or pallor MDM MDM MDM Narrative Medical decision making narrative: Patient is seen by specialist and her doctor with no etiology of her symptoms. Will obtain CBC to assess for anemia. BMP to assess for electrolyte abnormality and renal function. Suspect this is due to depression. Lab Data Attestation: I reviewed the patient's lab results. Lab results narrative: CBC is normal. There is a slight shift. This is not significant. Basic metabolic panel reveals slight elevation in glucose of 136. Labs: Laboratory Results - last 24 hr 08/04/22 08/04/22 17:43 17:43 WBC 7.4 RBC 4.38 Hgb 13.3 Hct 40.6 MCV 92.7 MCH 30.4 MCHC 32.8 RDW Std Deviation 42.4 RDW Coeff of Jamee 12.4 Plt Count 287 MPV 10.0 Immature Gran % (Auto) 0.400 Neut % (Auto) 86.5 H Lymph % (Auto) 3.2 L [place] % (Auto) 8.3 Eos % (Auto) 1.1 Baso % (Auto) 0.5 Absolute Neuts (auto) 6.4 Absolute Lymphs (auto) 0.24 L Nucleated RBC % 0 Differential Comment SCANNED Sodium 137 Potassium 3.5 Chloride 103 Carbon Dioxide 27.0 Anion Gap 7 BUN 10 Creatinine 0.65 Estim Creat Clear Calc 85.03 Est GFR (MDRD) Af Amer 118 Est GFR (MDRD) Non-Af 97 BUN/Creatinine Ratio 15.4 Glucose 136 H Calcium 9.3 Treatment and Re-Evaluation Narrative: Patient was informed the cause of her symptoms and pain is unknown. Since her doctor and otolaryngology were unable to determine the cause I informed her that my responsibilities are to determine if she has any life-threatening issues. Discharge Plan Triage Chief Complaint: Dizziness ED Provider: Chavo Veras Dx/Rx/DC Orders Clinical Impression: Chronic pain of both ears, Anterior neck pain, Myalgia Instructions: ED Chronic Pain Prescriptions: No Action diazepam 10 mg tablet 10 mg PO X1 PRN (Reason: Anxiety) Label Comments: take 1 tablet by mouth if needed (TO LAST 30 DAYS) famotidine 10 mg tablet,chewable PO Primary Care Provider: Elliott Porter Referrals: Elliott Porter MD [Primary Care Provider] - 5-7 Days Disposition Disposition: Home, Self Care
[2022-08-04 17:45] VITALS: BP 153/89; PULSE 120; RESP 16; O2SAT 95
[2022-08-04 17:48] LABS: Absolute Lymphocyte Count 0.24 X10^3/uL (0.83-4.51); Absolute Neutrophil Count 6.4 X10^3/uL (2.0-7.7); Basophil# 0.04 X10^3/uL; Basophil% 0.5 % (0-1); Eosinophil# 0.08 X10^3/uL; Eosinophils% 1.1 % (0-5); Hematocrit 40.6 % (37-47); Hemoglobin 13.3 g/dL (12.0-15.0); Lymphocyte # 0.24 X10^3/ul (0.83-4.51); Lymphocyte % 3.2 % (19-41); Mean Corp Hgb Conc 32.8 g/dL (32-36); Mean Corpuscular Hgb 30.4 pg (27.0-32.0); Mean Corpuscular Volume 92.7 fL (81-99); Monocyte# 0.62 X10^3/uL; Monocyte% 8.3 % (0-10); NRBC Flagged by Analyzer 0 % (0-5); Neutrophil # 6.43 X10^3/uL (2.7-7.7); Neutrophil % 86.5 % (47-70); POSITIVE DIFFERENTIAL YES; Platelet Count 287 K/mm3 (150-450); RBC Distribution Width CV 12.4 % (11.6-14.6); RBC Distribution Width SD 42.4 fl (35.1-43.9); Red Blood Count 4.38 M/mm3 (4.2-5.4); White Blood Count 7.4 K/mm3 (4.4-11.0)
[2022-08-04] MEDS: 0.9% Normal Saline 1,000 ML 1000 ML IV (17:48)
[2022-08-04 17:50] LABS: Differential Indicated SCAN CRITERIA MET
[2022-08-04 18:02] LABS: Anion Gap 7 (5-15); BUN 10 mg/dL (7-18); BUN/Creat Ratio 15.4 RATIO (10-20); Calcium,Total 9.3 mg/dL (8.5-10.1); Chloride 103 mmol/L (98-107); Creatinine, Serum 0.65 mg/dL (0.55-1.02); EST Glomerular Filtration Rate 97 mL/min (>60); Est Glom Filt Rate - Afr Amer 118 mL/min (>60); Estimated Creatinine Clearance 85.03 ml/min; Glucose 136 mg/dL (74-106); Potassium 3.5 mmol/L (3.5-5.1); Sodium Level 137 mmol/L (136-145)
[2022-08-04 18:13] LABS: Differential Comment SCANNED
[2022-08-04 19:10] VITALS: BP 132/77; PULSE 116; RESP 23; O2SAT 96
== END 2022-08-04 19:21 | disposition home or self-care (01) ==
PROVIDERS: Emergency Provider Emergency Medicine; PCP Family Medicine; Visit Provider Emergency Medicine
DX: H92.03 Otalgia, bilateral (principal); J44.9 Chronic obstructive pulmonary disease, unspecified; R42 Dizziness and giddiness; G89.29 Other chronic pain; M54.2 Cervicalgia; I10 Essential (primary) hypertension; F17.200 Nicotine dependence, unspecified, uncomplicated
CPT/HCPCS: 80048; 85025; 96360; 99282; J7030; A4216

== ENCOUNTER → 2022-09-05 | Outpatient (CLI) | payer MEDICARE, MEDICAID, SELFPAY ==
[2022-09-05 13:01] LABS: Ammonia < 10.0 umol/L (11-32)
[2022-09-05 13:34] LABS: Absolute Lymphocyte Count 1.83 X10^3/uL (0.83-4.51); Absolute Neutrophil Count 4.2 X10^3/uL (2.0-7.7); Basophil# 0.04 X10^3/uL; Basophil% 0.6 % (0-1); Eosinophil# 0.22 X10^3/uL; Eosinophils% 3.2 % (0-5); Hematocrit 42.4 % (37-47); Hemoglobin 13.8 g/dL (12.0-15.0); Lymphocyte # 1.83 X10^3/ul (0.83-4.51); Lymphocyte % 26.7 % (19-41); Mean Corp Hgb Conc 32.5 g/dL (32-36); Mean Corpuscular Hgb 30.6 pg (27.0-32.0); Mean Platelet Vol. 11.5 fl (6.2-12.0); Monocyte# 0.55 X10^3/uL; NRBC Flagged by Analyzer 0 % (0-5); Neutrophil # 4.18 X10^3/uL (2.7-7.7); Neutrophil % 61.1 % (47-70); Platelet Count 279 K/mm3 (150-450); RBC Distribution Width CV 12.6 % (11.6-14.6); RBC Distribution Width SD 43.3 fl (35.1-43.9); Red Blood Count 4.51 M/mm3 (4.2-5.4); White Blood Count 6.9 K/mm3 (4.4-11.0)
[2022-09-05 13:40] LABS: Prothrombin Time (Protime)PT. 12.8 SECONDS (11.7-14.9)
[2022-09-05 13:50] LABS: Hemoglobin A1c 5.8 % (3.8-5.6)
[2022-09-05 14:02] LABS: ALB/GLOB Ratio 0.9 RATIO (0.9-2.4); AST(SGOT) 16 U/L (15-37); Alanine Aminotransfer ALT/SGPT 21 U/L (13-56); Albumin, Serum 3.9 g/dL (3.2-5.0); Alkaline Phosphatase 125 U/L (45-117); Anion Gap 2 (5-15); BUN 11 mg/dL (7-18); BUN/Creat Ratio 17.4 RATIO (10-20); CRP < 2.90 mg/L (0.0-3.0); Calcium,Total 9.2 mg/dL (8.5-10.1); Chloride 106 mmol/L (98-107); Creatinine, Serum 0.63 mg/dL (0.55-1.02); EST Glomerular Filtration Rate 101 mL/min (>60); Est Glom Filt Rate - Afr Amer 122 mL/min (>60); Ferritin 13 ng/mL (8-252); Globulin 4.2 g/dL (2.2-4.2); Glucose 93 mg/dL (74-106); LDH 168 U/L (84-246); Potassium 4.1 mmol/L (3.5-5.1); Protein, Total 8.1 g/dL (6.4-8.2); Sodium Level 137 mmol/L (136-145)
[2022-09-05 14:19] LABS: Erythrocyte Sedimentation Rate 21 mm/hr (0-30)
[2022-09-05 14:25] LABS: HIV - WCH Non-Reactive (Nonreactive)
[2022-09-10 14:08] LABS: Anti-Centromere B Ab <0.2 AI (0.0-0.9); Anti-Chromatin <0.2 AI (0.0-0.9); Anti-Jo <0.2 AI (0.0-0.9); Anti-Scleroderma-70 AB <0.2 AI (0.0-0.9); RNP Ab 0.2 AI (0.0-0.9); SJOGREN'S Anti-SS-A test < 0.2 AI (0.0-0.9); SJOGREN'S Anti-SS-B test < 0.2 AI (0.0-0.9); Smith Ab <0.2 AI (0.0-0.9)
[2022-09-10 16:30] LABS: Anti-Mitochondrial AB <20.0 Units (0.0-20.0); Anti-dsDNA Ab 2 IU/mL (0-9)
== END | disposition home or self-care (01) ==
PROVIDERS: PCP Family Medicine; Referring Provider Nurse Practitioner Adult Health; Visit Provider Nurse Practitioner Adult Health
DX: E83.119 Hemochromatosis, unspecified (principal); K57.32 Diverticulitis of large intestine without perforation or abscess without bleeding; R10.13 Epigastric pain; B19.20 Unspecified viral hepatitis C without hepatic coma; G56.00 Carpal tunnel syndrome, unspecified upper limb
CPT/HCPCS: 36415; 80053; 80074; 82105; 82140; 82164; 82390; 82525; 82728; 83010; 83036; 83516; 83615; 85025; 85610; 85652; 86140; 86225; 86235; 86256; 86703; 87522

== ENCOUNTER → 2022-09-10 | Outpatient (CLI) | payer MEDICARE, MEDICAID, SELFPAY ==
--- NOTE | 2022-09-10 07:56 | US_ITS ---
STUDY: ABDOMINAL ULTRASOUND - ELASTOGRAPHY REASON FOR VISIT: Female, 62 years old. History of hepatitis C. TECHNIQUE: Liver stiffness measurements were obtained on a MicroJob RS 85 ultrasound machine using a CA 1-7 probe following the SRU guidelines. 3 measurements were obtained using a 2-D-SWE method. The IQR/M was 22% suggesting a quality data set. TECHNICAL QUALITY: Adequate. COMPARISON: Comparison is made with prior examination done earlier in the day. FINDINGS: Liver: There is no demonstrated mass lesion. Median liver stiffness measured 5.8 kPa. US/Elastography Parenchyma/Organ IMPRESSION: Liver stiffness measures 5.8 kPa compatible with F0-F1 (Normal to mild liver fibrosis) Metavir score. Electronically Signed: Slava Baird MD at 15:34 EST ,
--- NOTE | 2022-09-10 07:56 | US_ITS ---
STUDY: ABDOMINAL ULTRASOUND - RIGHT UPPER QUADRANT REASON FOR VISIT: Female, 62 years old upper abd fullness, hx hep C, elastography TECHNIQUE: Ultrasound evaluation of the right upper quadrant was performed with real-time and static torres-scale imaging. TECHNICAL QUALITY: Adequate. COMPARISON: None. FINDINGS: Liver: The liver measures 14.6 cm. There is normal echogenicity of the liver. The bile ducts are within normal limits. There is hepatic color flow. The direction of portal flow is hepatopetal. There is no demonstrated mass lesion. Gallbladder: Normal distended gallbladder. The gallbladder wall measures 2 mm. There is a negative sonographic Reid''s sign. There is no pericholecystic fluid. There are no gallstones. Common Bile Duct (C.B.D.): The common bile duct measures 3 mm. Pancreas: Normal size of the head, body and tail of the pancreas. There is normal echogenicity of the pancreas. There is no demonstrated pancreatic mass or cyst. Right Kidney: Normal size of the right kidney. The right kidney measures 11 cm x 5.2 cm x 4.3 cm. Normal renal cortex. The right cortex measures 1.6 cm. There is a 2 cm x 2.1 cm x 2 cm cyst in the lateral midpole region of the right kidney. There is no right hydronephrosis. US/Abdomen Limited IMPRESSION: Normal right upper quadrant ultrasound examination. 2 cm x 2.1 cm x 2 cm cyst in the lateral midpole region of the right kidney. Electronically Signed: Slava Baird MD at 15:32 EST ,
== END | disposition home or self-care (01) ==
LOC: US 07:55
PROVIDERS: PCP Family Medicine; Visit Provider Nurse Practitioner Adult Health
DX: B19.20 Unspecified viral hepatitis C without hepatic coma (principal)
CPT/HCPCS: 76705; 76981

== ENCOUNTER → 2023-01-17 | Outpatient (CLI) | payer MEDICARE, MEDICAID, SELFPAY ==
[2023-01-20 14:08] LABS: Endomysial Antibody IgA Negative (Negative); Immunoglobulin A 127 mg/dL (87-352); t-Transglutaminase IgA <2 U/mL (0-3)
== END | disposition home or self-care (01) ==
PROVIDERS: PCP Family Medicine; Referring Provider Nurse Practitioner Adult Health; Visit Provider Nurse Practitioner Adult Health
DX: K59.00 Constipation, unspecified (principal); R10.13 Epigastric pain; R14.0 Abdominal distension (gaseous)
CPT/HCPCS: 36415; 82784; 83516; 86255

== ENCOUNTER → 2023-01-31 | Outpatient (CLI) | payer MEDICARE, MEDICAID, SELFPAY ==
--- NOTE | 2023-01-31 12:05 | CT_ITS ---
ACR Level 3 findings have been noted. An addendum which confirms receipt of the report will follow. STUDY: CT ABDOMEN AND PELVIS WITH CONTRAST REASON FOR EXAM: Female, 62 years old. Change stool caliber, bloating, hx diverticulitis -- oral and IV RADIATION DOSAGE (If Supplied By Facility): CTDIvol = ( 9.64 ) mGy, DLP = ( 366.85 ) mGycm TECHNIQUE: Oral and amp; IV Gastrografin and amp; 96 mL Isovue-300 was administered. Transaxial images were obtained from the dome of the diaphragm to the symphysis pubis. Multiplanar coronal and sagittal images were reformatted. Individualized Dose Optimization Techniques Were Used For This CT. COMPARISON: 11/30/2021 FINDINGS: The visualized lung bases are unremarkable. The visualized portions of the heart are within normal limits. Normal liver. Normal gallbladder and extrahepatic biliary system. Normal spleen. Normal pancreas. No significant change in 2 cm left adrenal gland nodule. Normal visualized stomach. Normal small intestine. Enteric contrast reaches the descending colon. Sigmoid diverticulosis with wall thickening. There is questionable rightward rectal wall thickening. There is non-visualization of the appendix. Normal abdominal aorta. No retroperitoneal adenopathy. Normal right kidney. Normal left kidney. Normal urinary bladder. There is absence of the uterus consistent with a prior hysterectomy. Normal abdominal wall. Normal thoracolumbar vertebral alignment. CT/Abdomen/Pelvis WITH Contrast IMPRESSION: Vague right-sided rectal wall thickening raises suspicion for rectal cancer. This would likely be amenable to anoscopy. Sigmoid diverticulosis and wall thickening suspicious for developing diverticulitis. Electronically Signed: Jeanmarie Glez MD at 23:44 EDT ,
[2023-01-31 14:40] LABS: CREATININE FINGERSTICK < 0.9 mg/dL (0.55-1.02); EGFR FINGERSTICK > 60.0000 mL/min (>60)
== END | disposition home or self-care (01) ==
LOC: CT 12:04
PROVIDERS: PCP Family Medicine; Referring Provider Nurse Practitioner Adult Health; Visit Provider Nurse Practitioner Adult Health
DX: R19.5 Other fecal abnormalities (principal); Z87.19 Personal history of other diseases of the digestive system
CPT/HCPCS: 74177; Q9967

== ENCOUNTER 2023-02-17 05:23 | Day surgery (SDC) | payer MEDICARE, MEDICAID, SELFPAY ==
[2023-02-17 06:04] VITALS: BP 145/90; PULSE 79; RESP 17; TEMP 36.4; O2SAT 96; BMI 23.6
[2023-02-17] MEDS: Lactated Ringers 1,000 ML 15 ML IV (06:07)
--- NOTE | 2023-02-17 06:30 | COLBX_PTH ---
PATIENT: ROBBIE DE LA PAZ LOC: EN U#:[id number] AGE/SX: 62/F ROOM: RE02/17/[address]: Dr. Marquise Medina DO : 1960 BED: DIS: 02/17/2023 SPEC #: [id number] RECD: 02/17/23 09:36 STATUS: CHRISTINA STEWART #: [id number] BOLIVAR: 02/17/23 06:[address]: Marquise Medina DEPT: SURGICAL PATHOLOGY RECD BY: Alfredo Campbell ENTERED: 02/17/23 12:00 SP TYPE: COLON BX CARMENCITA DR: Dr. Elliott Porter MD Tissues: A - Cecum, NOS B - Ileum, NOS C - COLON BIOPSY Procedures: Surgery Specimen Level IV HEADER OPERATION: Colonoscopy (MAC) with biopsies PRE-OP DIAGNOSIS: Epigastric pain, bloating, constipation TISSUE SUBMITTED: A - Cecal cap biopsy, B - Terminal ileum biopsy, C - Hepatic flexure polyp biopsy MICROSCOPIC DIAGNOSIS A. Cecal cap, biopsy: Fragments of colonic mucosa, no pathologic diagnosis. B. Terminal ileum, biopsy: Fragments of small intestinal mucosa, no pathologic diagnosis. C. Hepatic flexure polyp, biopsy: Tubular adenoma. TED:karin 02/18/2023 MICROSCOPIC DESCRIPTION Slides are reviewed. GROSS DESCRIPTION A - Received in fixative is one container labeled with the patient's name and designated cecal cap biopsy. The specimen consists of multiple irregular fragments of light dominguez soft tissue that in aggregate measure 1.0 x 0.2 x 0.1 cm. The specimen is totally submitted in one cassette. B - Received in fixative is one container labeled with the patient's name and designated terminal ileum biopsy. The specimen consists of two irregular fragments of light dominguez soft tissue that in aggregate measure 0.6 x 0.3 x 0.1 cm. The specimen is totally submitted in one cassette. C - Received in fixative is one container labeled with the patient's name and designated hepatic flexure polyp biopsy. The specimen consists of two irregular fragments of light dominguez soft tissue that in aggregate measure 0.7 x 0.2 x 0.1 cm. The specimen is totally submitted in one cassette. / TED:karin 02/17/2023 TC: CPT: 02234 x3
--- NOTE | 2023-02-17 06:37 | PCM.HP.BLA ---
History and Physical Date of Admission: 02/17/23 ROBBIE DE LA PAZ, is a 62 F who presents to the office today for ongoing epigastric bloating and pressure. Last office visit 09/05/22. She notes her GI complaints of epigastric discomfort, bloating, gas, pressure continue. No early satiety. She doesn't think a gastric emptying study is needed. For the past week her stools have changed in that smaller caliber, having to strain. No melena or hematochezia. Tried homeopathic remedies for gas, no relief. Has daily BM, not sure if evacuating. No diarrhea. No nausea or vomiting. No heartburn or dysphagia. No lower abd pain. No pain related to BMs. Tried and failed: miralax, linzess, Ibsrela, lactulose, doxycycline She has a history of hepatitis C that was treated with Harvoni 2014. 08/2022 HCV undetectable. Elastography: liver stiffness 5.8 kpa consistent with F0-F1. Smokes cigarettes 04/2022 EGD (Z-line irregular, gastritis; mild gastritis, no Ty's) and colonoscopy (few diverticula, one polyp; no pathologic changes) by Dr Nargis Donis Constitutional: Positive for fatigue, fever(s), headache(s) and weight change (gain); No sleep problems, abnormal sleep pattern or change in appetite ENT ENT: Positive for headache(s); No difficulty swallowing, hoarseness or sore throat Resp Respiratory: No cough, hemoptysis or shortness of breath Cardio Cardiology: Positive for leg pain with exertion; No chest pain at rest or generalized swelling Gastro GI: Positive for abdominal pain, bloating and change in bowel habits; No belching, change in stool character, coffee ground emesis, constipation, cramping, diarrhea, heartburn, difficulty swallowing, feeling full early, excessive flatus, incontinent of stools, Vomiting blood/hematemesis, Blood in stool, loose stools, Black,tarry stools, nausea/dyspepsia, pain with swallowing or vomiting Musc Musculoskeletal: Positive for joint pain, back pain, joint swelling, muscle cramps, muscle weakness, numbness, stiffness, tingling, Arthritis, sciatica and leg pain with exertion Skin Skin: No itchy eyes or rash Neuro Neurology: Positive for headache(s), numbness, tingling and tremor(s); No behavioral changes or confusion Psych Psychiatric: No abnormal sleep pattern, No anxiety, No behavioral changes, No change in appetite, No confusion, No depression and Positive for inattentiveness Endo Endocrine: Positive for fatigue and weight change (gain); No cold intolerance, heat intolerance or increased thirst/drinking Aller/Imm Allergy/Immunologic: No food intolerance or itchy eyes Rafa/Lymp Hematologic/Lymphatic: Positive for easy bruising; No easy bleeding or enlarged lymph nodes Exam Const General: cooperative and no acute distress Orientation: alert, awake and oriented x3 HENMT Head: normal to inspection Resp Effort & Inspection: normal respiratory effort GI Inspection: normal to inspection Palpation: soft, no hepatosplenomegaly, no masses and tender in the epigastrum Quality Reporting Tobacco Screening ([facility] 138) Smoking Status: Light Smoker (<10/day) Assessment and Plan Assessment and Plan (1) Epigastric pain: ?Status:?Chronic ?Plan: 62 yr old female with chronic epigastric bloating, gas, pressure, as well as constipation. She bought IBGard (peppermint oil), go ahead and try that. RUQ US Test for celiac Will contact her with results She c/o feeling poorly head to toe (2) Bloating: ?Status:?Chronic ?Plan: see above (3) Constipation: ?Status:?Chronic ? ? ? Orders: Orders Abdomen Limited Today R10.13 - Epigastric pain, R14.0 - Abdominal distension (gaseous) ? Celiac Disease Profile Today K59.00 - Constipation, unspecified, R10.13 - Epigastric pain, R14.0 - Abdominal distension (gaseous) ? Medications: Discontinued tenapanor (Ibsrela) ?? must administer immediately before first meal of day/breakfast and dinner ?? Discontinued Reason:? Pt no longer taking 50 mg? PO BID 60 tabs 12RF ? ? I have examined the patient and the H&P has been reviewed. There are no clinical changes since date of exam.
[2023-02-17 07:02] VITALS: BP 108/60; BP 145/90; PULSE 72; RESP 18; TEMP 36.3; O2SAT 99
[2023-02-17 07:05] VITALS: BP 111/50; BP 145/90; PULSE 69; RESP 14; O2SAT 99
--- NOTE | 2023-02-17 07:09 | OP.COLON_ITS ---
Patient Name: Yari Trivedi Procedure Date: 02/17/2023 6:13 AM Date of : 1960 Age: 62 Procedure: Colonoscopy Indications: Generalized abdominal pain, Follow-up for history of adenomatous polyps in the colon Providers: Marquise Medina DO Referring MD: Marquise Medina DO Medicines: Monitored Anesthesia Care Patient Profile: This is a 62 year old female. Refer to note in patient chart for documentation of history and physical. Last Colonoscopy: 1 year ago. Complications: No immediate complications. Procedure: Pre-Anesthesia Assessment: - Prior to the procedure, a History and Physical was performed, and patient medications and allergies were reviewed. The patient is competent. The risks and benefits of the procedure and the sedation options and risks were discussed with the patient. All questions were answered and informed consent was obtained. Patient identification and proposed procedure were verified by the physician in the pre-procedure area. Mental Status Examination: alert and oriented. Airway Examination: normal oropharyngeal airway and neck mobility. Respiratory Examination: clear to auscultation. CV Examination: normal. Prophylactic Antibiotics: The patient does not require prophylactic antibiotics. Prior Anticoagulants: The patient has taken no previous anticoagulant or antiplatelet agents. After reviewing the risks and benefits, the patient was deemed in satisfactory condition to undergo the procedure. The anesthesia plan was to use monitored anesthesia care (MAC). Immediately prior to administration of medications, the patient was re-assessed for adequacy to receive sedatives. The heart rate, respiratory rate, oxygen saturations, blood pressure, adequacy of pulmonary ventilation, and response to care were monitored throughout the procedure. The physical status of the patient was re-assessed after the procedure. After I obtained informed consent, the scope was passed under direct vision. Throughout the procedure, the patient's blood pressure, pulse, and oxygen saturations were monitored continuously. The was introduced through the anus and advanced to the terminal ileum, with identification of the appendiceal orifice and IC valve. The colonoscopy was performed without difficulty. The patient tolerated the procedure well. The quality of the bowel preparation was good. Scope In: 6:42:21 AM Scope Withdrawal Time 0 hours 9 minutes 32 seconds Scope Out: 6:56:15 AM Total Procedure Duration Time 0 hours 13 minutes 54 seconds Findings: The perianal and digital rectal examinations were normal. Non-bleeding internal hemorrhoids were found during retroflexion. The hemorrhoids were Grade II (internal hemorrhoids that prolapse but reduce spontaneously). Multiple small and large-mouthed diverticula were found in the recto-sigmoid colon, sigmoid colon, descending colon, splenic flexure and transverse colon. There was narrowing of the colon in association with the diverticular opening. There was evidence of diverticular spasm. An area of mildly congested mucosa was found in the cecum. Biopsies were taken with a cold forceps for histology. Verification of patient identification for the specimen was done. Estimated blood loss was minimal. A 5 mm polyp was found in the hepatic flexure. The polyp was sessile. The polyp was removed with a cold snare. Resection and retrieval were complete. Verification of patient identification for the specimen was done. Estimated blood loss was minimal. Impression: - Non-bleeding internal hemorrhoids. - Severe diverticulosis in the recto-sigmoid colon, in the sigmoid colon, in the descending colon, at the splenic flexure and in the transverse colon. There was narrowing of the colon in association with the diverticular opening. There was evidence of diverticular spasm. - Congested mucosa in the cecum. Biopsied. - One 5 mm polyp at the hepatic flexure, removed with a cold snare. Resected and retrieved. Recommendation: - Repeat colonoscopy in 5 years for surveillance. - Continue present medications. Procedure Code(s): --- Professional --- 26085, Colonoscopy, flexible; with removal of tumor(s), polyp(s), or other lesion(s) by snare technique 76021, 59, Colonoscopy, flexible; with biopsy, single or multiple CPT copyright 2017 [employer]. All rights reserved. The codes documented in this report are preliminary and upon market intelligence consultant review may be revised to meet current compliance requirements. Marquise Medina DO 02/17/2023 7:09:01 AM This report has been signed electronically. Number of Addenda: 0 Note Initiated On: 02/17/2023 6:13 AM
[2023-02-17 07:10] VITALS: BP 113/69; BP 145/90; PULSE 70; RESP 12; O2SAT 97
--- NOTE | 2023-02-17 07:10 | OP.CCLET_ITS ---
02/17/2023 Elliott Porter [address] [place] [address] Re : Colonoscopy procedure for Yari Trivedi Dear Dr. Porter This procedure was performed on Friday, February 17, 2023. My impressions and recommendations are as follows: Impressions : - Non-bleeding internal hemorrhoids. - Severe diverticulosis in the recto-sigmoid colon, in the sigmoid colon, in the descending colon, at the splenic flexure and in the transverse colon. There was narrowing of the colon in association with the diverticular opening. There was evidence of diverticular spasm. - Congested mucosa in the cecum. Biopsied. - One 5 mm polyp at the hepatic flexure, removed with a cold snare. Resected and retrieved. Recommendations : - Repeat colonoscopy in 5 years for surveillance. - Continue present medications. My findings are described in the full procedure note, which is enclosed. If I can be of further assistance, please feel free to contact me at . Sincerely, Marquise Medina DO 02/17/2023 7:09:01 AM This report has been signed electronically.
[2023-02-17 07:14] VITALS: BP 118/71; BP 145/90; PULSE 68; RESP 14; TEMP 36.4; O2SAT 100
[2023-02-17 07:27] VITALS: BP 145/90
== END 2023-02-17 07:52 | disposition home or self-care (01) ==
LOC: EN 05:23 → AC 05:26
PROVIDERS: PCP Family Medicine; Referring Provider Internal Medicine Gastroenterology; Visit Provider Internal Medicine Gastroenterology
PROC: 0DJD8ZZ Inspection of Lower Intestinal Tract, Via Natural or Artificial Opening Endoscopic (ICD-10-PCS; CPT 45378; principal; 2023-02-17 06:25)
DX: D12.3 Benign neoplasm of transverse colon (principal); K57.30 Diverticulosis of large intestine without perforation or abscess without bleeding; F17.200 Nicotine dependence, unspecified, uncomplicated; K64.1 Second degree hemorrhoids; Z86.010 Personal history of colon polyps; Z87.19 Personal history of other diseases of the digestive system; K59.00 Constipation, unspecified; Z79.899 Other long term (current) drug therapy
CPT/HCPCS: 45380; 45385; 88305; J7120; J2405

== ENCOUNTER → 2023-06-17 | Outpatient (CLI) | payer MEDICARE, MEDICAID, SELFPAY ==
--- NOTE | 2023-06-17 15:00 | CT_ITS ---
STUDY: CT ABDOMEN AND PELVIS WITH CONTRAST REASON FOR EXAM: Female, 63 years old. diverticulitis RADIATION DOSAGE (If Supplied By Facility): CTDIvol = ( 11.03 ) mGy, DLP = ( 352.40 ) mGycm TECHNIQUE: Transaxial images were obtained from the dome of the diaphragm to the symphysis pubis without oral contrast. Oral and amp; IV Gastrografin and amp; 100mL Isovue-300 was administered. Sagittal and coronal images were reconstructed. Individualized dose optimization techniques were used for this CT. COMPARISON: 01/31/2023. 11/30/2021. FINDINGS: Trace bilateral subpleural atelectasis, otherwise clear lung bases. The visualized portions of the heart are within normal limits. Normal liver. Normal gallbladder and extrahepatic biliary system. Normal spleen. Normal pancreas. Normal right adrenal gland. Left adrenal nodule measuring 1.8 x 1.8 cm stable since 11/30/2021 and therefore favoring benign process. Several low-attenuation structures within the right kidney, largest seen in the upper pole measuring 2.6 cm, unchanged in the interval and most compatible with simple renal cysts. Otherwise normal right kidney. Normal left kidney. Normal visualized stomach. Normal small intestine. Mild scattered diverticulosis throughout the sigmoid with borderline thickening of the wall through the sigmoid and descending portion, cannot exclude mild descending colitis. Otherwise colon is unremarkable. There is non-visualization of the appendix. There is diffuse atherosclerotic calcification of the abdominal aorta, without a demonstrated aneurysm. Normal inferior vena cava. Normal retroperitoneum. Normal urinary bladder. Nonvisualized uterus suggestive of previous hysterectomy. Normal abdominal wall. There are diffuse degenerative changes of the visualized lumbar spine. Possible diffuse osteopenia. CT/Abdomen/Pelvis WITH Contrast IMPRESSION: Cannot exclude borderline/mild descending colitis. Nonvisualized appendix with no inflammatory process to suggest appendicitis. No bowel obstruction. Stable left adrenal lesion favoring benign process given stability otherwise incompletely characterized. Right-sided simple renal cysts, remainder of abdominal viscera are unremarkable. Electronically Signed: Usha Edouard MD at 20:47 EDT ,
[2023-06-17 17:25] LABS: CREATININE FINGERSTICK < 0.9 mg/dL (0.55-1.02); EGFR FINGERSTICK > 60.0000 mL/min (>60)
== END | disposition home or self-care (01) ==
PROVIDERS: PCP Family Medicine; Referring Provider Internal Medicine Gastroenterology; Visit Provider Internal Medicine Gastroenterology
DX: K57.32 Diverticulitis of large intestine without perforation or abscess without bleeding (principal)
CPT/HCPCS: 74177

== ENCOUNTER 2023-12-05 16:00 | Emergency (ER) | payer MEDICARE, MEDICAID, SELFPAY ==
[2023-12-05 16:01] VITALS: BP 182/124; PULSE 90; RESP 16; TEMP 36.6; O2SAT 99; BMI 24.3
--- NOTE | 2023-12-05 16:26 | EKG12_ITS ---
Test Reason : CP Blood Pressure : / mmHG Vent. Rate : 083 BPM Atrial Rate : 083 BPM P-R Int : 138 ms QRS Dur : 090 ms QT Int : 398 ms P-R-T Axes : 067 035 062 degrees QTc Int : 467 ms Normal sinus rhythm Normal ECG Confirmed by Carter Caldera ([id number]), desk editor MICHELLE SEGURA ([id number]) on 12/08/2023 11:12:16 AM Referred By: Confirmed By:Carter Caldera
--- NOTE | 2023-12-05 16:26 | EX.ED.DYSGE1 ---
HPI History of Present Illness Chief Complaint: General Illness Informant: patient Narrative Narrative: 63-year-old female presenting to the emergency room with a constellation of symptoms. Is very hard to get what her chief complaint is. She tells me that for years she has had pain in her upper abdomen pain and abnormal warm sensations on the right side of her neck which she attributes to thyroid nodules. Bifacial pain also extends down onto her arm the side of her chest. She states all that is been there and nothing is new with that but this morning she got dizzy and experienced some chest pain and a sensation that her heart was racing. Chest pain is simply described as a pain. Lasted about 2 hours and then resolved. Patient is hyperfocused on tell me a lot of symptoms and testing that she feels was unnecessary from several years ago. What I can get that is new today is that a sudden onset of dizziness and the chest pain. She denies any shortness of breath. No nausea vomiting or diaphoresis. She is a smoker. [facility] Medical History Anxiety Arthritis Carpal tunnel syndrome Chest pain Chronic pain COPD (chronic obstructive pulmonary disease) Diverticulitis Hemochromatosis Hepatitis History of edema Hypertension IBS (irritable bowel syndrome) Sciatica Shortness of breath on exertion Smoker TIA (transient ischemic attack) Wears glasses Home Medications diazepam 10 mg tablet (Valium) 10 mg PO QHS PRN Anxiety 09/05/22 [History Last Taken Unknown] peg 3350-electrolytes 236 gram-22.74 gram-6.74 gram-5.86 gram solution (Golytely) 240 ml PO Q10M #4,000 mL 02/06/23 [Rx Last Taken Unknown] dicyclomine 10 mg capsule 10 mg PO TID 30 days #90 caps 06/19/23 [Rx Last Taken Unknown] folic acid 1 mg tablet 1 mg PO DAILY 30 days #30 tabs 06/20/23 [Rx Last Taken Unknown] lubiprostone 24 mcg capsule (Amitiza) 24 mcg PO BID 30 days #60 caps 06/20/23 [Rx Last Taken Unknown] sulfasalazine 500 mg tablet 0.5 g PO .qid 30 days #120 tabs 06/20/23 [Rx Last Taken Unknown] Allergy/AdvReac Type Severity Reaction Status Date / Time codeine Allergy nausea, Verified 12/05/23 16:03 hypotensive pantoprazole [From Protonix] AdvReac Intermediate headache Verified 12/05/23 16:03 fentanyl AdvReac Nausea, Verified 12/05/23 16:03 hypotensive Family History Mother Myocardial infarction Other Alcoholism Arthritis Breast cancer Cancer Diabetes Hypertension Surgical History History of esophagogastroduodenoscopy (EGD) History of hysterectomy Social History household members: none Smoking Status: Light Smoker (<10/day) Tobacco: How many years used: 50 alcohol intake: never substance use type: does not use ROS ROS ED Constitutional Constitutional ED: Denies chills or weight loss Eyes Eyes: Denies change in vision or diplopia ENT ENT ED: Reports other Details: Right facial pain neck pain and right chest pain chronic ; Denies ear pain, rhinorrhea or sore throat Cardiovascular Cardiovascular: Reports chest pain, palpitations and racing heartbeat; Denies orthopnea Respiratory/Chest Respiratory/Chest: Denies cough, dyspnea or orthopnea Gastrointestinal Gastrointestinal: Reports abdominal pain and other Details: Chronic abdominal pain epigastric and left upper quadrant ; Denies diarrhea, nausea or vomiting Genitourinary Genitourinary ED: Denies dysuria, hematuria or urinary frequency Musculoskeletal Musculoskeletal: Denies arthralgias or myalgias Integumentary Denies abscess or rash Neurologic Neurologic: Denies headache(s) or weakness Psychiatric Psychiatric: Denies anxiety, depression, suicidal ideation or suicidal thoughts Endocrine Endocrinology: Denies polydipsia, polyphagia or polyuria Allergic/Immunologic Allergic/Immunologic ED: Denies mouth swelling, tongue swelling or urticaria EXAM Physical Exam Const Vital Signs: 12/05/23 16:01 12/05/23 17:29 Temperature 97.8 F Temperature Source Temporal Pulse Rate 90 Respiratory Rate 16 Respiratory Effort Normal Non-Labored Respiratory Pattern Normal Blood Pressure 182/124 H Blood Pressure Mean 143 Pulse Ox 99 Oxygen Delivery Method Room Air Positive well nourished and well developed General Appearance ED: well developed HEENT Reports normocephalic, head/scalp atraumatic and moist mucous membranes Eyes PERRL and EOMs intact bilaterally Neck no lymphadenopathy, supple and no JVD Resp normal respiratory effort and clear to auscultation bilaterally Cardio regular rate, regular rhythm and no murmurs GI normal to inspection, nondistended, normoactive bowel sounds and non-tender Palpation: soft Back/Spine no CVA tenderness and normal ROM Extremity normal to inspection General Extremety ED: Negative for edema General Extremity: Negative for edema Neuro oriented x3 and CN's II-XII intact bilaterally Sensorium / Orientation: alert Motor Exam: strength 5/5 throughout Psych mental status grossly normal Mood & Affect: Negative for depressed or tearful Skin no rashes or lesions noted and no wounds MDM MDM MDM Narrative Medical decision making narrative: The patient has chronic complaints that have been going on for years. However in her own words the dizziness and the chest discomfort/palpitations this afternoon or new. Basic blood work was obtained shows a hemoglobin of 15.2 white count of 8.8. TSH normal 1.54. Initial troponin was 5. Delta troponin was ordered but was unable to be obtained. Negative interpretation of the chest x-ray is no acute process. No mediastinal widening to suggest aneurysm. Chronic changes noted. I doubt that this is pulmonary embolism that lasted less than 2 hours and now is asymptomatic. I do not think that this is aortic dissection. Symptoms are gone she had no leg symptoms or abdominal symptoms. EKG is normal sinus rhythm with a normal troponin. She remains asymptomatic. The patient decided that no longer help her and wanted to leave. Patient has the capacity to make this decision and therefore was signed out AMA. History & Record Review Discussion w/independent historian: Patient Additional record(s) reviewed:: Prior labs Lab Data Attestation: I reviewed the patient's lab results. Labs: Laboratory Results - last 24 hr 12/05/23 16:40 WBC 8.8 RBC 4.72 Hgb 15.2 H Hct 44.5 MCV 94.3 MCH 32.2 H MCHC 34.2 RDW Std Deviation 42.3 RDW Coeff of Jamee 12.1 Plt Count 281 MPV 10.3 Immature Gran % (Auto) 0.200 Neut % (Auto) 51.7 Lymph % (Auto) 35.0 [place] % (Auto) 9.4 Eos % (Auto) 2.8 Baso % (Auto) 0.9 Absolute Neuts (auto) 4.5 Absolute Lymphs (auto) 3.08 Nucleated RBC % 0 Sodium 139 Potassium 4.6 Chloride 111 H Carbon Dioxide 24.0 Anion Gap 4 L BUN 8 Creatinine 0.53 L Estim Creat Clear Calc 68.18 Est GFR (MDRD) Af Amer 148 Est GFR (MDRD) Non-Af 122 BUN/Creatinine Ratio 15.0 Glucose 95 Calcium 9.0 Troponin I High Sens 5 TSH 1.54 Radiography Diagnostic Testing: Clinical Impression(s) from Imaging Studies Chest X-Ray 12/05/23 16:54 IMPRESSION: No radiographic evidence of acute cardiopulmonary disease. Aortic atherosclerosis. Electronically Signed: Gurpreet Burns MD at 17:40 EDT , EKG Initial EKG: Attestation: I personally reviewed and interpreted this EKG as follows: Comments: Normal sinus rhythm ventricular rate of 83 bpm. No concerning features of ACS noted Discharge Plan Triage Chief Complaint: General Illness ED Provider: Karri Figueroa Dx/Rx/DC Orders Clinical Impression: Heart palpitations, Dizziness, Chest pain Instructions: ED Chest Pain, Uncertain Cause Prescriptions: No Action diazepam [Valium] 10 mg tablet 10 mg PO QHS PRN (Reason: Anxiety) peg 3350-electrolytes [Golytely] 236-22.74-6.74 -5.86 gram recon soln 240 ml PO Q10M Qty: 4000 0RF Rx Instructions: until fecal effluent is clear dicyclomine 10 mg capsule 10 mg PO TID 30 Days Qty: 90 11RF Rx Instructions: Take 3 times a day for 10 days, and then take as needed for abdominal pain sulfasalazine 500 mg tablet 0.5 g PO .qid 30 Days Qty: 120 11RF Rx Instructions: take 1 gram twice a day and take with food. 2 pills in the morning and 2 pills in the evening. folic acid 1 mg tablet 1 mg PO DAILY 30 Days Qty: 30 11RF lubiprostone [Amitiza] 24 mcg capsule 24 mcg PO BID 30 Days Qty: 60 2RF Primary Care Provider: Elliott Porter Referrals: Elliott Porter MD [Primary Care Provider] - 1-2 Weeks Disposition Disposition: Against Medical Advice
[2023-12-05 16:45] LABS: Absolute Lymphocyte Count 3.08 X10^3/uL (0.83-4.51); Absolute Neutrophil Count 4.5 X10^3/uL (2.0-7.7); Basophil# 0.08 X10^3/uL; Basophil% 0.9 % (0-1); Eosinophil# 0.25 X10^3/uL; Eosinophils% 2.8 % (0-5); Hematocrit 44.5 % (37-47); Hemoglobin 15.2 g/dL (12.0-15.0); Lymphocyte # 3.08 X10^3/ul (0.83-4.51); Mean Corp Hgb Conc 34.2 g/dL (32-36); Mean Corpuscular Hgb 32.2 pg (27.0-32.0); Mean Corpuscular Volume 94.3 fL (81-99); Mean Platelet Vol. 10.3 fl (6.2-12.0); Monocyte# 0.83 X10^3/uL; Monocyte% 9.4 % (0-10); NRBC Flagged by Analyzer 0 % (0-5); Neutrophil # 4.53 X10^3/uL (2.7-7.7); Neutrophil % 51.7 % (47-70); Platelet Count 281 K/mm3 (150-450); RBC Distribution Width CV 12.1 % (11.6-14.6); RBC Distribution Width SD 42.3 fl (35.1-43.9); Red Blood Count 4.72 M/mm3 (4.2-5.4); White Blood Count 8.8 K/mm3 (4.4-11.0)
--- NOTE | 2023-12-05 16:54 | RAD_ITS ---
INDICATION: chest pain EXAMINATION/TECHNIQUE: X-RAY - XR Chest 1 View COMPARISON: July 01, 2022. FINDINGS: LINES/DEVICES: None. LUNGS: No consolidation, edema or effusion. No pneumothorax. MEDIASTINUM AND CARDIOVASCULAR STRUCTURES: Cardiac silhouette not enlarged. Aortic atherosclerosis . BONES AND SOFT TISSUES: Unremarkable. RAD/Chest 1 View (Portable) IMPRESSION: No radiographic evidence of acute cardiopulmonary disease. Aortic atherosclerosis. Electronically Signed: Gurpreet Burns MD at 17:40 EDT ,
[2023-12-05 17:10] LABS: Anion Gap 4 (5-15); BUN 8 mg/dL (7-18); Chloride 111 mmol/L (98-107); Creatinine, Serum 0.53 mg/dL (0.55-1.02); EST Glomerular Filtration Rate 122 mL/min (>60); Est Glom Filt Rate - Afr Amer 148 mL/min (>60); Estimated Creatinine Clearance 68.18 ml/min; Glucose 95 mg/dL (74-106); Potassium 4.6 mmol/L (3.5-5.1); Sodium Level 139 mmol/L (136-145); Thyroid Stim Hormone (TSH) 1.54 uIU/mL (0.358-3.74); Troponin-I HS 5 pg/mL (3.0-54.0)
--- NOTE | 2023-12-05 18:05 | ED.RN ---
pt decided she was going to leave before her test results are back and states there is nothing we can do for her here. pt states she has a puppy at home that needs her. explained the process of test and getting the results, all test the patient request be done. reminded the patient that she told me dr's never listen to her and now the dr did and did what she asked him to for her to turn around and leave like this. pt just stated she was sorry but shes leaving. pt did sign ama papers and left
== END 2023-12-05 18:09 | disposition left against medical advice (07) ==
PROVIDERS: Emergency Provider Emergency Medicine; PCP Family Medicine; Visit Provider Emergency Medicine
DX: Z53.29 Procedure and treatment not carried out because of patient's decision for other reasons (principal); J44.9 Chronic obstructive pulmonary disease, unspecified; R07.9 Chest pain, unspecified; R42 Dizziness and giddiness; F17.200 Nicotine dependence, unspecified, uncomplicated; R00.2 Palpitations; I10 Essential (primary) hypertension
CPT/HCPCS: 36415; 71045; 80048; 84443; 84484; 85025; 93005; 99284